=== PATIENT | male | born 1960 | race Caucasian/White ===

== ENCOUNTER 2019-04-17 12:10 | Inpatient (IN) | payer OTHER, SELFPAY ==
[2019-02-10 10:50] VITALS: BMI 23.7
[2019-04-17] VITALS (9 sets, daily range): BP systolic 104–147; BP diastolic 53–100; PULSE 95–124; RESP 14–20; TEMP 37.1–39.3; O2SAT 97–99; BMI 23.7; BMI 23.3
--- NOTE | 2019-04-17 13:16 | VDLE_ITS ---
Reason For Study: pain, redness Procedure LEFT Exam performed portable in ED. GSV is normal. The exam was diagnostic. CFV is compressible, spontaneous, phasic, A preliminary report was called and/or faxed competent, and demonstrates normal to Dr. Reyes. augmentation. FV is compressible, spontaneous, phasic, competent and demonstrates normal augmentation. POP V is compressible, spontaneous, phasic, competent and demonstrates normal augmentation. T/P Trunk is compressible. PTV is compressible. LT PerV is compressible. Interpretation Summary Deep veins of the left lower extremity are patent and compressible segmentally. There is no evidence of left lower extremity deep vein thrombosis. Valvular competence appears intact within the proximal deep venous system on the left . The left greater saphenous vein appears patent and compressible segmentally. Ordering Physician: Tony Reyes Performed By: Aleksandr Wilson RVT
--- NOTE | 2019-04-17 13:16 | EKG12_ITS ---
Test Reason : GEN ILLNESS Blood Pressure : / mmHG Vent. Rate : 117 BPM Atrial Rate : 117 BPM P-R Int : 122 ms QRS Dur : 076 ms QT Int : 296 ms P-R-T Axes : 074 006 068 degrees QTc Int : 412 ms Sinus tachycardia Borderline ECG Confirmed by SMITH MARTÍNEZ ([id number]), tape editor MELIA WATERS ([id number]) on 04/18/2019 2:33:25 PM Referred By: Bhavana Harmon Confirmed By:SMITH MARTÍNEZ
--- NOTE | 2019-04-17 13:16 | CT_ITS ---
STUDY: CT BRAIN WITHOUT CONTRAST REASON FOR EXAM: Male, 58 years old. Headaches. History of subdural hematoma. RADIATION DOSAGE (If Supplied By Facility): CTDIvol = ( 44.99 ) mGy, DLP = ( 849.54 ) mGycm TECHNIQUE: Transaxial CT imaging of the brain was performed without administration of intravenous contrast material. Individualized dose optimization techniques were used for this CT. COMPARISON: Comparison is made with prior study dated March 30, 2015. FINDINGS: Normal soft tissue structures. Normal calvarium. Normal size ventricles and extra-axial spaces for the patient's age. Normal white matter tracts of the cerebral hemispheres. Normal basal ganglia and thalami. Normal brainstem. Normal cerebellum. There is no intracranial hemorrhage. There are no findings of an acute ischemic infarction. Mucosal thickening of the right frontal sinus. CT/Brain/Head without Contrast IMPRESSION: The previously seen left subdural hematoma has resolved. No acute abnormality is seen. Electronically Signed: Woo Thompson, at 14:20 EDT , Service support ,
--- NOTE | 2019-04-17 13:16 | RAD_ITS ---
STUDY: X-RAY CHEST REASON FOR EXAM: Male, 58 years old. Sepsis. TECHNIQUE: Single AP portable view of the chest. COMPARISON: None. FINDINGS: EKG electrodes are seen. Hyperinflation. There is no demonstrated pleural abnormality. Normal size heart. Normal mediastinum and violetta. Normal visualized pulmonary arteries. Normal visualized aortic arch and descending thoracic aorta. There are degenerative changes of the visualized thoracic spine. Normal visualized ribs, clavicles, and shoulders. There is no demonstrated abnormality of the visualized soft tissue structures of the upper abdomen. RAD/Chest 1 View (Portable) IMPRESSION: Hyperinflation. Electronically Signed: Woo Thompson, at 13:40 EDT , Service support ,
[2019-04-17] MEDS: Acetaminophen 500 MG Tablet 1000 MG PO (13:29)
[2019-04-17] MEDS: 0.9% Normal Saline 1,000 ML 1000 ML IV ×2 (13:29)
[2019-04-17 13:38] LABS: Absolute Lymphocyte Count 0.99 X10^3/uL (0.83-4.51); Absolute Neutrophil Count 22.9 X10^3/uL (2.0-7.7); Basophil# 0.07 X10^3/uL; Basophil% 0.3 % (0-1); Eosinophils% 0.4 % (0-5); Hematocrit 45.4 % (40-54); Hemoglobin 15.3 g/dL (13.0-16.5); Lymphocyte # 0.99 X10^3/ul (4.0); Lymphocyte % 3.9 % (19-41); Mean Corp Hgb Conc 33.7 g/dL (32-36); Mean Corpuscular Hgb 32.1 pg (27.0-32.0); Mean Corpuscular Volume 95.4 fL (80-94); Mean Platelet Vol. 10.9 fl (6.2-12.0); Monocyte# 1.24 X10^3/uL; Monocyte% 4.9 % (0-10); NRBC Flagged by Analyzer 0 % (0-5); Neutrophil # 22.89 X10^3/uL (2.7-7.7); Neutrophil % 89.6 % (47-70); POSITIVE DIFFERENTIAL YES; Platelet Count 198 K/mm3 (150-450); RBC Distribution Width CV 13.2 % (11.6-14.6); RBC Distribution Width SD 47.2 fl (35.1-43.9); Red Blood Count 4.76 M/mm3 (4.6-6.2); White Blood Count 25.5 K/mm3 (4.4-11.0)
[2019-04-17 13:42] LABS: Partial Thromboplast Time 30.2 Seconds (24.1-36.2); Prothrombin Time (Protime)PT. 13.4 SECONDS (11.7-14.9)
[2019-04-17 13:47] LABS: Differential Indicated SCAN CRITERIA MET
[2019-04-17 13:50] LABS: Bacteria 0 SEEN /hpf (None Seen); Mucous, Urine 0 SEEN /hpf (<or=2+); Squamous Epithelial Cells - UA 0 SEEN /hpf (0-5); White Blood Cells 0 SEEN /hpf (0-5)
[2019-04-17 13:55] LABS: ALB/GLOB Ratio 0.9 RATIO (0.9-2.4); AST(SGOT) 16 U/L (15-37); Alanine Aminotransfer ALT/SGPT 26 U/L (16-61); Albumin, Serum 3.8 g/dL (3.2-5.0); Alkaline Phosphatase 68 U/L (45-117); Anion Gap 6 (5-15); BUN 16 mg/dL (7-18); BUN/Creat Ratio 13.1 RATIO (10-20); CPK Total, Creatine Kinase 75 U/L (39-308); Chloride 104 mmol/L (98-107); Creatinine, Serum 1.22 mg/dL (0.70-1.30); EST Glomerular Filtration Rate 65 mL/min (>60); Est Glom Filt Rate - Afr Amer 79 mL/min (>60); Estimated Creatinine Clearance 83.01 ml/min; Globulin 4.3 g/dL (2.2-4.2); Glucose 109 mg/dL (74-106); Potassium 3.6 mmol/L (3.5-5.1); Protein, Total 8.1 g/dL (6.4-8.2); Sodium Level 135 mmol/L (136-145)
[2019-04-17 13:55] LABS: Color, Urine Yellow (Yellow); Glucose, Dipstick Normal (Normal); Ketone-Dipstick Negative (Negative); Leukocyte Esterase-Dipstick Negative /ul (Negative); Nitrite-Dipstick Negative (Negative); Occult Blood-Urine 150 /ul (Negative); Protein-Dipstick Negative (Negative); Urine Bilirubin Dipstick Negative (Negative); Urine Clarity Clear (Clear); Urine Urobilinogen Normal (Normal)
[2019-04-17 14:01] LABS: Red Blood Cells-Urine 0-5 SEEN /hpf (0-5)
[2019-04-17 14:04] LABS: Differential Comment SCANNED
[2019-04-17 14:15] LABS: Platelet Estimate ADEQUATE (ADEQ); Red Cell Morphology NORM C+C NORMAL (NORM C&C)
[2019-04-17 14:49] LABS: Lactic Acid 1.7 mmol/L (0.4-2.0)
--- NOTE | 2019-04-17 14:54 | HP.PCM_ITS ---
History of Present Illness Date of Admission: 04/17/19 Chief Complaint: fever, general malaise The patient is a 58 year old M with a past medical history of subdural hematoma. He was admitted to the ED on 04/17/2019 with a complaint of left lower extremity numbness tingling and pain as well as headache, shoulder and back pain as well as neck pain. Patient thinks he may have had a spider bite to his left leg yesterday. He states that it was in his pant leg and he killed the spider but he is not sure exactly where it may have bitten him. He admitted to associated fever but denied any chills, palpitations or dizziness, chest pain, diarrhea vomiting. Review of symptoms otherwise negative. In the ED, vitals were significant for temperature of 102.7 and heart rate in the 130s. CBC was remarkable for white cell count of 25.5. CMP was normal. Chest x-ray showed no acute changes and left lower extremity duplex ultrasound was negative for DVT. CT of the head and was also negative. Actiq acid was 1.7. He has been admitted to be managed for sepsis due to left lower extremity cellulitis. [] Past Medical History Past Medical History (Chronic Problems): Chronic Problems (Last Reviewed 08/12/18 @ 08:21 by Amparo Kaplan) Back pain (Chronic) Tobacco abuse (Chronic) Medical History: Medical History (Last Reviewed 08/12/18 @ 08:21 by Amparo Kaplan) History of transient ischemic attack (TIA) Z86.73 Neck/Back Pain Allergies No Known Allergies Allergy (Verified 08/12/18 08:19) Home Medications: Ambulatory Orders Medication Instructions Recorded NK 04/17/19 Surgical History: no surgical history Psychiatric History: No pertinent psych hx - 1 pack per day for the past 18 years Smoking Status: Heavy Smoker (>10/day) Tobacco Use: Cigarettes Alcohol: None Drugs: None - *Family History Maternal History Items: Cancer Paternal History Items: Cancer Review of Systems Constitutional: Reports: Chills, Fever, Malaise. Denies: Anorexia, Weakness, Fatigue Eyes: Denies: Blurred vision HEENT: Denies: Head Aches, Sinus Congestion, Sinus Drainage Cardiovascular: Denies: Chest Pain, Palpitations Respiratory: Denies: Cough, Shortness of breath at rest, Sputum production Gastrointestinal: Denies: Abdominal Pain, Nausea, Vomiting Genitourinary: Denies: Dysuria Musculoskeletal: Reports: Back Pain, Leg Pain, Muscle pain, Neck Pain, Shoulder Pain. Denies: Arm Pain, Foot Pain, Hand Pain, Joint Pain, Joint stiffness, Joint swelling, Joint Tenderness Skin: Reports: Skin Changes - redness. Denies: Rash, Wounds Neurological: Denies: Numbness, Tingling, Focal weakness Psychiatric: Denies: Anxiety, Depression, Homicidal Ideations, Suicidal Ideations Hematologic/ Lymphatic: Denies: Easy Bruising, Easy Bleeding VTE Information - Inpt Only VTE Present on Admission: No VTE Pharm Prophylaxis ordered?: Yes - Physical Exam General: Alert, Oriented x3, Cooperative, No apparent distress HEENT: Atraumatic, PERRLA, EOMI, Normocephalic Oral: Moist Mucosa Neck: Supple, No JVD, Negative Carotid Bruits Lungs: Clear to auscultation, Normal air movement, No rhonchi, No wheeze, No rales Cardiovascular: Regular Rhythm, Normal S1, Normal S2, No murmurs, Tachycardic Abdomen: Bowel Sounds Present, Soft, Non Tender, Non-Distended, No Hepato- splenomegaly Extremities: No clubbing, No cyanosis, No edema, Capillary Refill Less than 3 Seconds Skin: - - redness and lymphangitic streaking from dorsum of left foot, radiating up to left inner thigh Musculoskeletal: Tenderness - mild tenderness on palpation of LLE and thigh Lymphatic: No Cervical, Supraclavicular, or Inguinal Adenopathy Neurological: Cranial nerves II-XII grossly intact, Neuro grossly intact, Motor Exam 5/5 strength throughout Psych/Mental Status: Normal Affect, Appropriate, Alert and oriented to time, place, person, mood and affect Vital Signs Temp Pulse Resp BP Pulse Ox 102.7 F H 118 H 16 147/100 H 98 04/17/19 13:30 04/17/19 13:30 04/17/19 13:30 04/17/19 13:30 04/17/19 13:30 Oxygen Delivery Method Room Air Weight: 195 lb Body Mass Index (BMI) 23.7 Laboratory Tests Past 24 Hrs 04/17/19 04/17/19 04/17/19 12:40 12:40 12:40 WBC 25.5 H RBC 4.76 Hgb 15.3 Hct 45.4 MCV 95.4 H MCH 32.1 H MCHC 33.7 RDW Std Deviation 47.2 H RDW Coeff of Moses 13.2 Plt Count 198 MPV 10.9 Immature Gran % (Auto) 0.900 Neut % (Auto) 89.6 H Lymph % (Auto) 3.9 L [place] % (Auto) 4.9 Eos % (Auto) 0.4 Baso % (Auto) 0.3 Absolute Neuts (auto) 22.9 H Absolute Lymphs (auto) 0.99 Nucleated RBC % 0 Differential Comment SCANNED Platelet Estimate ADEQUATE RBC Morphology NORM C+C PT 13.4 INR 1.0 APTT 30.2 Sodium 135 L Potassium 3.6 Chloride 104 Carbon Dioxide 25.0 Anion Gap 6 BUN 16 Creatinine 1.22 Estim Creat Clear Calc 83.01 Est GFR (MDRD) Af Amer 79 Est GFR (MDRD) Non-Af 65 BUN/Creatinine Ratio 13.1 Glucose 109 H Lactic Acid Calcium 9.0 Total Bilirubin 0.60 AST 16 ALT 26 Alkaline Phosphatase 68 Total Creatine Kinase 75 Troponin I < 0.015 Total Protein 8.1 Albumin 3.8 Globulin 4.3 H Albumin/Globulin Ratio 0.9 Urine Color Urine Clarity Urine pH Ur Specific [place] Urine Protein Urine Glucose (UA) Urine Ketones Urine Occult Blood Urine Nitrite Urine Bilirubin Urine Urobilinogen Ur Leukocyte Esterase Urine RBC Urine WBC Ur Squamous Epith Cells Urine Bacteria Urine Mucus 04/17/19 04/17/19 13:40 14:10 WBC RBC Hgb Hct MCV MCH MCHC RDW Std Deviation RDW Coeff of Moses Plt Count MPV Immature Gran % (Auto) Neut % (Auto) Lymph % (Auto) [place] % (Auto) Eos % (Auto) Baso % (Auto) Absolute Neuts (auto) Absolute Lymphs (auto) Nucleated RBC % Differential Comment Platelet Estimate RBC Morphology PT INR APTT Sodium Potassium Chloride Carbon Dioxide Anion Gap BUN Creatinine Estim Creat Clear Calc Est GFR (MDRD) Af Amer Est GFR (MDRD) Non-Af BUN/Creatinine Ratio Glucose Lactic Acid 1.7 Calcium Total Bilirubin AST ALT Alkaline Phosphatase Total Creatine Kinase Troponin I Total Protein Albumin Globulin Albumin/Globulin Ratio Urine Color Yellow Urine Clarity Clear Urine pH 8.0 Ur Specific [place] 1.010 Urine Protein Negative Urine Glucose (UA) Normal Urine Ketones Negative Urine Occult Blood 150 H Urine Nitrite Negative Urine Bilirubin Negative Urine Urobilinogen Normal Ur Leukocyte Esterase Negative Urine RBC 0-5 SEEN Urine WBC 0 SEEN Ur Squamous Epith Cells 0 SEEN Urine Bacteria 0 SEEN Urine Mucus 0 SEEN Diagnostic Data Brain CT 04/17/19 13:16 IMPRESSION: The previously seen left subdural hematoma has resolved. No acute abnormality is seen. Electronically Signed: Woo Laulamar, at 14:20 EDT , Service support , Chest X-Ray 04/17/19 13:16 IMPRESSION: Hyperinflation. Electronically Signed: Woo Donna, at 13:40 EDT , Service support , Assessment/Plan All Active Problems (Last Reviewed 08/12/18 @ 08:21 by Amparo Kaplan) Encounter for examination required by Department of Transportation (DOT) (Acute) 58 y/o admitted with a complaint of redness and pain of LLE, and fever and chills. 1. Sepsis due to LLE cellulitis * admit to PCU with telemetry * lactic acid was only 1.7 * SIRS criteria is 3/4 (fever, tachycardia and elevated wbc of 25.5) * started on IV cefazolin; will continue * hydrate with IVF per sepsis protocol * Duplex of LE was negative for DVT * blood cultures taken in ED * keep LLE elevated * 2. LLE cellulitis: as under 1. 3. History of subdural hematoma: * resolved. * CT brain done on admission was negative DVT prophylaxis: lovenox * Code Visit Inpatient E&M: 84484 Init Hosp L3
--- NOTE | 2019-04-17 14:56 | ED.DCSUM_ITS ---
- ER Visit Summary Date of Service: 04/17/19 Chief Complaint: Pain History of Present Illness: The patient is a 58 M with multiple symptoms that started this morning. He had left lower extremity numbness and tingling as well as headache, neck pain, bilateral shoulder pain, back pain. He also had nausea. He thinks he had a spider bite to his left thigh yesterday. He never saw a spider. He reported a sudden pain in the area. He never had this before. He does have a history of a subdural hemorrhage and was admitted for this in the past, but never found an etiology for it he has a remote history of meningitis. Physical Examination: Temperature 102.7 and heart rate in the 130s. Respiratory rate normal. Blood pressure normal. 98% on room air. Patient alert and oriented. He is shivering. HEENT exam unremarkable. Neck is nontender with good range of motion. No meningeal signs. Heart tachycardic but regular. Lungs clear. Abdomen soft and nontender. Patient has erythema, warmth, and swelling to his left dorsal foot as well as erythema to his left medial thigh. There are no obvious skin breaks. He is neurovascularly intact. Cranial nerves grossly intact. Normal strength and sensation. Test Results: EKG showed sinus rhythm at a rate of 117. Nonspecific ST and T wave changes. White count 25.5. Sodium 135, glucose 109. Hepatic panel and coags unremarkable. Urinalysis unremarkable. Troponin unremarkable. Cultures pending. Chest x-ray showed chronic changes. Left lower extremity showed no evidence of DVT on ultrasound. CT brain showed no acute process. Lactate pending. Emergency Department Course and Treatment: Patient meets sepsis criteria. He does have an obvious cellulitis and it looks like lymphangitic streaking up his left leg. He was started on fluid resuscitation and Tylenol. White count was elevated. He had no other signs of sepsis. He continues to have a headache and was treated with Toradol. I do not believe he has meningitis or encephalitis based on his symptoms and exam findings. I believe his symptoms are from the cellulitis. Patient was treated with cefazolin. He received Toradol for pain. I spoke with the hospitalist who will admit for further care. He is improved after fluids, but lactate is pending. Treatment Plan: As above Disposition: Admission Impression: 1. Sepsis 2. Left leg cellulitis 3. Myalgias This note was generated with Regino dictation software. It may contain incorrect words, spelling, and punctuation that were not noted in review of the chart pr ior to signing ED Disposition - Plan for ED Patient: Referrals: Maureen Lerma, AIRFIELD ENGINEER OFFICER-C [Primary Care Provider] -
--- NOTE | 2019-04-17 15:04 | NURSING ---
[address], [facility]
[2019-04-17] MEDS: Ketorolac 15 MG/ML Vial IV (15:36)
--- NOTE | 2019-04-17 15:39 | ED.RN ---
patient sent upstairs with antbx, pharmacy did not send until prior to going up
[2019-04-17] MEDS: 0.9% Normal Saline 1,000 ML 150 ML IV (16:02)
[2019-04-17] MEDS: Cefazolin 1 GM/50 ML BAG IV ×2 (16:03→21:55)
[2019-04-17] MEDS: Acetaminophen 325 MG Tablet 650 MG PO (19:36)
[2019-04-17] MEDS: Ondansetron 4 MG/2 ML Vial IV (23:48)
[2019-04-18] VITALS (12 sets, daily range): BP systolic 105–136; BP diastolic 49–77; PULSE 85–122; RESP 18–29; TEMP 36.1–38.4; O2SAT 96–100
[2019-04-18] MEDS: 0.9% Normal Saline 1,000 ML 150 ML IV (00:44)
[2019-04-18] MEDS: Acetaminophen 325 MG Tablet 650 MG PO ×3 (02:12→19:42)
--- NOTE | 2019-04-18 03:37 | PCM.PN.BLA ---
Progress Note Nurse reports that marking on cellulitic site has gone beyond the original marnie. Patient still have tachycardia and tachypnea. Nurse report chills. Patient required Tylenol to maintain appropriate temperature. Patient is on Ancef for cellulitis. Will escalate regimen by adding clindamycin.
[2019-04-18] MEDS: Cefazolin 1 GM/50 ML BAG IV (05:22)
[2019-04-18 05:54] LABS: Absolute Lymphocyte Count 0.98 X10^3/uL (0.83-4.51); Absolute Neutrophil Count 14.4 X10^3/uL (2.0-7.7); Basophil# 0.07 X10^3/uL; Basophil% 0.4 % (0-1); Eosinophil# 0.06 X10^3/uL; Eosinophils% 0.4 % (0-5); Hematocrit 40.1 % (40-54); Hemoglobin 13.1 g/dL (13.0-16.5); Lymphocyte # 0.98 X10^3/ul (4.0); Lymphocyte % 5.9 % (19-41); Mean Corp Hgb Conc 32.7 g/dL (32-36); Mean Corpuscular Hgb 31.1 pg (27.0-32.0); Mean Corpuscular Volume 95.2 fL (80-94); Mean Platelet Vol. 10.8 fl (6.2-12.0); Monocyte# 0.87 X10^3/uL; Monocyte% 5.3 % (0-10); NRBC Flagged by Analyzer 0 % (0-5); Neutrophil # 14.41 X10^3/uL (2.7-7.7); Neutrophil % 87.3 % (47-70); Platelet Count 167 K/mm3 (150-450); RBC Distribution Width CV 13.8 % (11.6-14.6); RBC Distribution Width SD 48.3 fl (35.1-43.9); Red Blood Count 4.21 M/mm3 (4.6-6.2); White Blood Count 16.5 K/mm3 (4.4-11.0)
[2019-04-18 06:23] LABS: Anion Gap 6 (5-15); BUN 14 mg/dL (7-18); Chloride 111 mmol/L (98-107); Creatinine, Serum 1.17 mg/dL (0.70-1.30); EST Glomerular Filtration Rate 68 mL/min (>60); Est Glom Filt Rate - Afr Amer 83 mL/min (>60); Estimated Creatinine Clearance 86.55 ml/min; Glucose 116 mg/dL (74-106); Potassium 3.4 mmol/L (3.5-5.1); Sodium Level 138 mmol/L (136-145)
[2019-04-18] MEDS: Rizatriptan Benzoate 10 MG Tablet PO (06:58)
[2019-04-18] MEDS: Enoxaparin 40 MG/0.4 ML Syringe SC (10:40)
--- NOTE | 2019-04-18 12:58 | CASEMGMT ---
RN CM VAULT TELLER CM to room to meet with patient for initial transition planning/care coordination assessment. RN RICH introduced self and role at [facility]. Pt voices understanding and consents to assessment at this time. Pt resting in bed in no distress at this time. @ bedside. Pt is A/O at this time and answers all questions appropriately. Care providers, pharmacy, and demographics verified/updated at this time. PCP: Maria Guadalupe Specialists: none Preferred Pharmacy: [facility] Insurance: [facility] Prescription Benefit: Yes Living Will/HPOA: Pt does not currently have LW/HCPOA and declines info at this time. Pt made aware that he can contact [facility] as an out-pt and make appt in the future if he decides he would like to talk with someone about this or would like to utilize [facility] social work for advanced directive completion. Given Railway Patrol Officer Rac card with information and contact number. Pt expresses understanding. LNOK: Living Arrangements: Lives w/ in ranch-style home. Independent. and pt share home mgmt tasks. Transportation: Pt states drives self and states no transportation concerns at this time. will drive pt home @ dc. DME: Denies using any DME and denies needs. HHC/SNF: No history of either and no needs identified. Pt wishes to return home and states has no concerns with going home at time of discharge. Pt states does not drink ETOH. States does smoke and has been given Smoking Cessation Rac Card. States is planning on talking to his PCP about quitting. CM to follow for any discharge planning/needs. Pt voices no further concerns/needs at this time. Advised pt to ask for CM if any further questions/concerns/needs arise. Voices understanding. PLAN: Home w/spousal support and discharge plans in place. Kamlesh TORRES RN, CM
[2019-04-18] MEDS: 0.9% NaCl Peripheral Flush Adult/Peds IV (14:22)
--- NOTE | 2019-04-18 15:25 | PCM.PN.HOSP ---
Subjective: Feels little bit better today, states that his leg is little sore and swollen Vitals/I&O's: Vital Signs Temp Pulse Resp BP Pulse Ox 101.1 F H 111 H 18 133/50 H 100 04/18/19 10:33 04/18/19 10:33 04/18/19 10:33 04/18/19 10:33 04/18/19 10:33 Oxygen Delivery Method Room Air Weight: 192 lb 0.362 oz Body Mass Index (BMI) 23.3 Intake and Output for Last 24 Hours 04/16/19 04/17/19 04/18/19 23:59 23:59 23:59 Intake Total 1465 / 1465 1666 / 1666 Output Total 800 / 800 Balance 665 / 665 1666 / 1666 General: Alert, Oriented x3, Cooperative, No apparent distress HEENT: Atraumatic, PERRLA, EOMI, Normocephalic Oral: Moist Mucosa Neck: Supple, No JVD Lungs: Clear to auscultation, Normal air movement, No rhonchi, No wheeze, No rales Cardiovascular: Regular rate, Regular Rhythm, Normal S1, Normal S2, No murmurs Abdomen: Soft, Non Tender, Non-Distended, No Hepato-splenomegaly Extremities: Capillary Refill Less than 3 Seconds, Edema - 1+ edema left foot Skin: - - Erythema extending from his left foot up into his medial groin. Some segments of lymphatic streaking Neurological: Neuro grossly intact, Sensory exam intact to light touch and pain Psych/Mental Status: Normal Affect, Appropriate Microbiology Past 72 Hours 04/17/19 13:40 Urine, Clean Catch Urine Culture - Preliminary Culture exhibits no growth. Laboratory Results 04/18/19 05:10: WBC 16.5 H, RBC 4.21 L, Hgb 13.1, Hct 40.1, MCV 95.2 H, MCH 31.1, MCHC 32.7, RDW Std Deviation 48.3 H, RDW Coeff of Moses 13.8, Plt Count 167, MPV 10.8, Immature Gran % (Auto) 0.700, Neut % (Auto) 87.3 H, Lymph % (Auto) 5.9 L, [place] % (Auto) 5.3, Eos % (Auto) 0.4, Baso % (Auto) 0.4, Absolute Neuts (auto) 14.4 H, Absolute Lymphs (auto) 0.98, Nucleated RBC % 0 04/18/19 05:10: Sodium 138, Potassium 3.4 L, Chloride 111 H, Carbon Dioxide 21.0, Anion Gap 6, BUN 14, Creatinine 1.17, Estim Creat Clear Calc 86.55, Est GFR (MDRD) Af Amer 83, Est GFR (MDRD) Non-Af 68, BUN/Creatinine Ratio 12.0, Glucose 116 H, Calcium 8.0 L Current Medications Acetaminophen (Tylenol) 650 mg PO Q6H PRN PRN PRN Reason: Mild Pain (1-3)/Temp > 100.7 F Last Admin: 04/18/19 10:40 Dose: 650 mg Documented by: Dextrose (D50w Syringe) 0 gm IV X1 PRN; Protocol PRN Reason: Hypoglycemia Enoxaparin Sodium (Lovenox) 40 mg SC DAILY@1000 ARMANDO Last Admin: 04/18/19 10:40 Dose: 40 mg Documented by: Glucagon () 1 mg IM .X1 PRN PRN Reason: Hypoglycemia Sodium Chloride () 250 mls @ 15 mls/hr IV .[id number] PRN PRN Reason: SALINE FLUSH Clindamycin Phosphate 600 mg/ (Dextrose) 54 mls @ 100 mls/hr IV Q8 [facility] Last Admin: 04/18/19 14:21 Dose: 100 mls/hr Documented by: Cefazolin Sodium 2 gm/ Sodium (Chloride) 110 mls @ 150 mls/hr IV Q8 [facility] Nicotine (Nicoderm Cq (Pbkc)) 21 mg TRANSDERM. DAILY [facility] Last Admin: 04/18/19 10:40 Dose: 21 mg Documented by: Ondansetron HCl (Zofran) 4 mg IV Q8H PRN PRN PRN Reason: NAUSEA/VOMITING Last Admin: 04/17/19 23:48 Dose: 4 mg Documented by: Rizatriptan Benzoate (Maxalt) 10 mg PO .[X1 PRN] PRN PRN Reason: MIGRAINE SYMPTOMS Last Admin: 04/18/19 06:58 Dose: 10 mg Documented by: Sodium Chloride () 10 - 40 ml IV UD PRN PRN Reason: SALINE FLUSH Last Admin: 04/18/19 14:22 Dose: 10 ml Documented by: Medical Necessity - Tobacco Use Smoking Status: Heavy Smoker (>10/day) Tobacco Use: Cigarettes Assessment/Plan All Active Problems (Last Reviewed 08/12/18 @ 08:21 by Amparo Kaplan) Encounter for examination required by Department of Transportation (DOT) (Acute) 1. Sepsis secondary to left lower extremity cellulitis probably from streptococcal organism -Lactic acid on admission was one 1.7 -Continue with IV fluids -Ultrasound of his left lower extremity did not show DVT -Cultures negative and blood cultures are still pending -He was started on IV Ancef 1 g and this was increased to 2 g after he continued to have fevers this afternoon. -He also had clindamycin added because of increased erythema since admission earlier this morning by the security engineer -We will continue to monitor, leukocytosis has improved from 25 to 16 -He is concerned that this could be from a spider bite, he is not showing any areas of necrosis to indicate a spider bite, there is no area of fluctuance to think that this is a staph infection DVT: Lovenox Code Visit Inpatient E&M: 51643 Subs Hosp L2
[2019-04-18] MEDS: Cefazolin 2 GM in 0.9% Normal Saline 100 ML IV ×2 (15:26→22:25)
[2019-04-19] VITALS (8 sets, daily range): BP systolic 103–110; BP diastolic 58–67; PULSE 88–101; RESP 16–18; TEMP 36.9–37.1; O2SAT 97–99
[2019-04-19] MEDS: Acetaminophen 325 MG Tablet 650 MG PO ×3 (04:25→18:19)
[2019-04-19 05:56] LABS: Absolute Lymphocyte Count 1.25 X10^3/uL (0.83-4.51); Absolute Neutrophil Count 12.6 X10^3/uL (2.0-7.7); Basophil# 0.04 X10^3/uL; Basophil% 0.3 % (0-1); Eosinophil# 0.04 X10^3/uL; Eosinophils% 0.3 % (0-5); Hematocrit 41.5 % (40-54); Hemoglobin 13.7 g/dL (13.0-16.5); Lymphocyte # 1.25 X10^3/ul (4.0); Lymphocyte % 8.4 % (19-41); Mean Corpuscular Hgb 31.4 pg (27.0-32.0); Mean Corpuscular Volume 95.2 fL (80-94); Mean Platelet Vol. 10.6 fl (6.2-12.0); Monocyte# 0.94 X10^3/uL; Monocyte% 6.3 % (0-10); NRBC Flagged by Analyzer 0 % (0-5); Neutrophil % 84.2 % (47-70); Platelet Count 145 K/mm3 (150-450); RBC Distribution Width SD 49.5 fl (35.1-43.9); Red Blood Count 4.36 M/mm3 (4.6-6.2); White Blood Count 14.9 K/mm3 (4.4-11.0)
[2019-04-19 06:25] LABS: Anion Gap 6 (5-15); BUN 10 mg/dL (7-18); BUN/Creat Ratio 9.6 RATIO (10-20); Calcium,Total 8.4 mg/dL (8.5-10.1); Chloride 108 mmol/L (98-107); Creatinine, Serum 1.04 mg/dL (0.70-1.30); EST Glomerular Filtration Rate 78 mL/min (>60); Est Glom Filt Rate - Afr Amer 95 mL/min (>60); Estimated Creatinine Clearance 97.37 ml/min; Glucose 124 mg/dL (74-106); Potassium 3.5 mmol/L (3.5-5.1); Sodium Level 139 mmol/L (136-145)
[2019-04-19] MEDS: Cefazolin 2 GM in 0.9% Normal Saline 100 ML IV ×3 (06:48→23:10)
--- NOTE | 2019-04-19 09:04 | PCM.PN.HOSP ---
Subjective: Feeling much better today, headache has resolved and pain has decreased in his left leg as has the redness. Vitals/I&O's: Vital Signs Temp Pulse Resp BP Pulse Ox 98.8 F 94 18 110/67 97 04/19/19 04:30 04/19/19 07:15 04/19/19 04:30 04/19/19 04:30 04/19/19 04:30 Oxygen Delivery Method Room Air Weight: 192 lb 0.362 oz Body Mass Index (BMI) 23.3 Intake and Output for Last 24 Hours 04/17/19 04/18/19 04/19/19 23:59 23:59 23:59 Intake Total 1465 / 1465 2581 / 2581 240 / 240 Output Total 800 / 800 Balance 665 / 665 2581 / 2581 240 / 240 General: Alert, Oriented x3, Cooperative, No apparent distress HEENT: Atraumatic, PERRLA, EOMI, Normocephalic Oral: Moist Mucosa Neck: Supple, No JVD Lungs: Clear to auscultation, Normal air movement, No rhonchi, No wheeze, No rales Cardiovascular: Regular rate, Regular Rhythm, Normal S1, Normal S2, No murmurs Abdomen: Soft, Non Tender, Non-Distended, No Hepato-splenomegaly Extremities: Capillary Refill Less than 3 Seconds, Edema - 1+ edema left foot Skin: - - Erythema extending from his left foot up into his medial groin. Some segments of lymphatic streaking, overall improved Neurological: Neuro grossly intact, Sensory exam intact to light touch and pain Psych/Mental Status: Normal Affect, Appropriate Microbiology Past 72 Hours 04/17/19 13:40 Urine, Clean Catch Urine Culture - Preliminary Culture exhibits no growth. Laboratory Results 04/19/19 05:25: WBC 14.9 H, RBC 4.36 L, Hgb 13.7, Hct 41.5, MCV 95.2 H, MCH 31.4, MCHC 33.0, RDW Std Deviation 49.5 H, RDW Coeff of Moses 14.0, Plt Count 145 L, MPV 10.6, Immature Gran % (Auto) 0.500, Neut % (Auto) 84.2 H, Lymph % (Auto) 8.4 L, [place] % (Auto) 6.3, Eos % (Auto) 0.3, Baso % (Auto) 0.3, Absolute Neuts (auto) 12.6 H, Absolute Lymphs (auto) 1.25, Nucleated RBC % 0 04/19/19 05:25: Sodium 139, Potassium 3.5, Chloride 108 H, Carbon Dioxide 25.0, Anion Gap 6, BUN 10, Creatinine 1.04, Estim Creat Clear Calc 97.37, Est GFR (MDRD) Af Amer 95, Est GFR (MDRD) Non-Af 78, BUN/Creatinine Ratio 9.6 L, Glucose 124 H, Calcium 8.4 L Current Medications Acetaminophen (Tylenol) 650 mg PO Q6H PRN PRN PRN Reason: Mild Pain (1-3)/Temp > 100.7 F Last Admin: 04/19/19 04:25 Dose: 650 mg Documented by: Dextrose (D50w Syringe) 0 gm IV X1 PRN; Protocol PRN Reason: Hypoglycemia Enoxaparin Sodium (Lovenox) 40 mg SC DAILY@1000 ARMANDO Last Admin: 04/18/19 10:40 Dose: 40 mg Documented by: Glucagon () 1 mg IM .X1 PRN PRN Reason: Hypoglycemia Sodium Chloride () 250 mls @ 15 mls/hr IV .[id number] PRN PRN Reason: SALINE FLUSH Clindamycin Phosphate 600 mg/ (Dextrose) 54 mls @ 100 mls/hr IV Q8 [facility] Last Admin: 04/19/19 06:06 Dose: 100 mls/hr Documented by: Cefazolin Sodium 2 gm/ Sodium (Chloride) 110 mls @ 150 mls/hr IV Q8 [facility] Last Admin: 04/19/19 06:48 Dose: 150 mls/hr Documented by: Nicotine (Nicoderm Cq (Pbkc)) 21 mg TRANSDERM. DAILY [facility] Last Admin: 04/18/19 10:40 Dose: 21 mg Documented by: Ondansetron HCl (Zofran) 4 mg IV Q8H PRN PRN PRN Reason: NAUSEA/VOMITING Last Admin: 04/17/19 23:48 Dose: 4 mg Documented by: Rizatriptan Benzoate (Maxalt) 10 mg PO .[X1 PRN] PRN PRN Reason: MIGRAINE SYMPTOMS Last Admin: 04/18/19 06:58 Dose: 10 mg Documented by: Sodium Chloride () 10 - 40 ml IV UD PRN PRN Reason: SALINE FLUSH Last Admin: 04/18/19 14:22 Dose: 10 ml Documented by: Medical Necessity - Tobacco Use Smoking Status: Heavy Smoker (>10/day) Tobacco Use: Cigarettes Assessment/Plan All Active Problems (Last Reviewed 08/12/18 @ 08:21 by Amparo Kaplan) Encounter for examination required by Department of Transportation (DOT) (Acute) 1. Sepsis secondary to left lower extremity cellulitis probably from streptococcal organism -Lactic acid on admission was one 1.7 -Continue with IV fluids -Ultrasound of his left lower extremity did not show DVT -Cultures negative and blood cultures are still pending -With improvement in his erythema, continue with Ancef 2 g 3 times daily and clindamycin, if he continues to improve like this tomorrow we will plan for discharge on p.o. Keflex and clindamycin -We will continue to monitor, leukocytosis has improved from 25 to 14.9 DVT: Lovenox Code Visit Inpatient E&M: 78199 Subs Hosp L2
[2019-04-19] MEDS: Enoxaparin 40 MG/0.4 ML Syringe SC (09:56)
[2019-04-20 03:06] VITALS: PULSE 89
[2019-04-20 03:43] VITALS: BP 109/62; PULSE 93; RESP 16; TEMP 37.1; O2SAT 98
[2019-04-20] MEDS: Acetaminophen 325 MG Tablet 650 MG PO (04:30)
[2019-04-20 05:51] LABS: Absolute Lymphocyte Count 1.25 X10^3/uL (0.83-4.51); Absolute Neutrophil Count 7.9 X10^3/uL (2.0-7.7); Basophil# 0.04 X10^3/uL; Basophil% 0.4 % (0-1); Eosinophil# 0.23 X10^3/uL; Eosinophils% 2.2 % (0-5); Lymphocyte # 1.25 X10^3/ul (4.0); Lymphocyte % 12.1 % (19-41); Mean Corp Hgb Conc 33.3 g/dL (32-36); Mean Corpuscular Hgb 31.7 pg (27.0-32.0); Mean Corpuscular Volume 95.1 fL (80-94); Mean Platelet Vol. 10.9 fl (6.2-12.0); Monocyte# 0.92 X10^3/uL; Monocyte% 8.9 % (0-10); NRBC Flagged by Analyzer 0 % (0-5); Neutrophil # 7.87 X10^3/uL (2.7-7.7); Neutrophil % 75.9 % (47-70); Platelet Count 164 K/mm3 (150-450); RBC Distribution Width CV 13.9 % (11.6-14.6); RBC Distribution Width SD 48.5 fl (35.1-43.9); White Blood Count 10.4 K/mm3 (4.4-11.0)
[2019-04-20] MEDS: Cefazolin 2 GM in 0.9% Normal Saline 100 ML IV (07:13)
[2019-04-20 08:30] VITALS: BP 104/63; PULSE 88; RESP 18; TEMP 36.9; O2SAT 98
--- NOTE | 2019-04-20 08:39 | DCINST_ITS ---
You will use the following diet at home:: Regular Your food should be the consistency of: Regular Your liquids should be the consistency of: Regular/Thin Discharge Activity: Return to Normal Activity Call your doctor if your incision/area has: Increased Pain/ Swelling, Increased Redness Call your doctor if you observe: Fever of 101 or Higher, Shortness of breath, Dizziness, Fainting spells, Chest pain, Increased palpitations (irregular heartbeat) Allergies/Adverse Reactions: Allergies No Known Allergies Allergy (Verified 08/12/18 08:19) Medications to take at Discharge Cephalexin [Keflex] 500 mg PO Q6 #28 cap 04/20/19 Clindamycin [Cleocin] 300 mg PO 4X/DAY #56 cap 04/20/19 The following prescriptions were given: Clindamycin [Cleocin] 300 mg PO 4X/DAY #56 cap Transmission Status: Pending to [facility] Cephalexin [Keflex] 500 mg PO Q6 #28 cap Transmission Status: Pending to [facility] Primary Care Physician: Maureen Lerma NP-C [Primary Care Provider] - Please follow up with your Primary Care Physician in: 3-5 days Test Results: Test results from this visit will be discussed in further detail at your follow- up appointment, if applicable.
--- NOTE | 2019-04-20 08:41 | PCM.DC.SUM ---
Discharge Date and Diagnosis Date of Admission: 04/17/19 Date of Discharge: 04/20/19 - Secondary Discharge Diagnosis Chronic Problems (Last Reviewed 08/12/18 @ 08:21 by Amparo Kaplan) Back pain (Chronic) Tobacco abuse (Chronic) Hospital Course and Treatment Imaging Results: CT Brain: IMPRESSION: The previously seen left subdural hematoma has resolved. No acute abnormality is seen. CXR: IMPRESSION: Hyperinflation. Venous Doppler: Interpretation Summary Deep veins of the left lower extremity are patent and compressible segmentally. There is no evidence of left lower extremity deep vein thrombosis. Valvular competence appears intact within the proximal deep venous system on the left . The left greater saphenous vein appears patent and compressible segmentally. Consults: None Operations: None Procedures: None Summary of Care Provided: Per HPI: The patient is a 58 year old M with a past medical history of subdural hematoma. He was admitted to the ED on 04/17/2019 with a complaint of left lower extremity numbness tingling and pain as well as headache, shoulder and back pain as well as neck pain. Patient thinks he may have had a spider bite to his left leg yesterday. He states that it was in his pant leg and he killed the spider but he is not sure exactly where it may have bitten him. He admitted to associated fever but denied any chills, palpitations or dizziness, chest pain, diarrhea vomiting. Review of symptoms otherwise negative. In the ED, vitals were significant for temperature of 102.7 and heart rate in the 130s. CBC was remarkable for white cell count of 25.5. CMP was normal. Chest x-ray showed no acute changes and left lower extremity duplex ultrasound was negative for DVT. CT of the head and was also negative. Actiq acid was 1.7. He has been admitted to be managed for sepsis due to left lower extremity cellulitis. Hospital Course: 1. Sepsis secondary to left lower extremity cellulitis probably from streptococcal [id number] male with a history of subdural hematoma presented with 12-hour onset of left lower extremity cellulitis. On admission he was septic which has resolved. He did have a lactic acid which was 1.7 on admission and was continued on IV fluids. He did have a venous Doppler of his left lower extremity which was negative for DVT. He was admitted initially on Ancef, however the night of his admission he spiked a fever and there is progression of the redness with streaking up the medial aspect of his leg, so the hand miter operator also added clindamycin. He has since improved significantly in his redness though he does still have left lower extremity swelling in his foot. His white count has resolved from 25-10 and therefore he will be discharged home on 7 more days of Keflex 500 mg p.o. 4 times daily and clindamycin 300 mg p.o. 4 times daily as well. He is to follow-up with his PCP in 3 to 5 days for evaluation. I also stressed to him that he needs to finish his antibiotics completely even if he starts to feel better over the weekend. This was discussed with both him and the and both understand and are in agreement. Objective: General: Alert, Oriented x3, Cooperative, No apparent distress HEENT: Atraumatic, PERRLA, EOMI, Normocephalic Oral: Moist Mucosa Neck: Supple, No JVD Lungs: Clear to auscultation, Normal air movement, No rhonchi, No wheeze, No rales Cardiovascular: Regular rate, Regular Rhythm, Normal S1, Normal S2, No murmurs Abdomen: Soft, Non Tender, Non-Distended, No Hepato-splenomegaly Extremities: Capillary Refill Less than 3 Seconds, Edema - 1+ edema left foot Skin: - - Erythema extending from his left foot up into his medial groin. Some segments of lymphatic streaking, overall improved Neurological: Neuro grossly intact, Sensory exam intact to light touch and pain Psych/Mental Status: Normal Affect, Appropriate - Physical Exam Vital Signs Temp Pulse Resp BP Pulse Ox 98.5 F 88 18 104/63 98 04/20/19 08:30 04/20/19 08:30 04/20/19 08:30 04/20/19 08:30 04/20/19 08:30 Oxygen Delivery Method Room Air Weight: 192 lb 0.362 oz Body Mass Index (BMI) 23.3 Intake and Output for Last 24 Hours 04/18/19 04/19/19 04/20/19 23:59 23:59 23:59 Intake Total 2580 350 / 350 Balance 2580 350 / 350 Microbiology Past 72 Hours 04/17/19 13:40 Urine Culture - Final Urine, Clean Catch Culture exhibits no growth. 04/17/19 14:15 Blood Culture - Preliminary Blood Culture (Wb) - Anticubital Right No growth in 48 hours. 04/17/19 14:10 Blood Culture - Preliminary Blood Culture (Wb) - Left Hand No growth in 48 hours. Laboratory Tests Past 24 Hrs 04/20/19 05:17 WBC 10.4 RBC 4.10 L Hgb 13.0 Hct 39.0 L MCV 95.1 H MCH 31.7 MCHC 33.3 RDW Std Deviation 48.5 H RDW Coeff of Moses 13.9 Plt Count 164 MPV 10.9 Immature Gran % (Auto) 0.500 Neut % (Auto) 75.9 H Lymph % (Auto) 12.1 L [place] % (Auto) 8.9 Eos % (Auto) 2.2 Baso % (Auto) 0.4 Absolute Neuts (auto) 7.9 H Absolute Lymphs (auto) 1.25 Nucleated RBC % 0 Discharge Activity: Return to Normal Activity Call your doctor if your incision/area has: Increased Pain/ Swelling, Increased Redness Call your doctor if you observe: Fever of 101 or Higher, Shortness of breath, Dizziness, Fainting spells, Chest pain, Increased palpitations (irregular heartbeat) Home Medications: Medications to take at Discharge Cephalexin [Keflex] 500 mg PO Q6 #28 cap 04/20/19 Clindamycin [Cleocin] 300 mg PO 4X/DAY #56 cap 04/20/19 Following Prescrptions Were Given to Patient: Clindamycin [Cleocin] 300 mg PO 4X/DAY #56 cap Transmission Status: Pending to [facility] Cephalexin [Keflex] 500 mg PO Q6 #28 cap Transmission Status: Pending to [facility] Primary Care Physician: Maureen Lerma NP-C [Primary Care Provider] - Please follow up with your Primary Care Physician in: 3-5 days Disposition: Home Minutes spent on discharge:: 35 Patient Condition:: Stable Medical Necessity - Tobacco Use Smoking Status: Heavy Smoker (>10/day) Tobacco Use: Cigarettes Meaningful Use Info Meaningful Use Diagnoses (Choose all that apply): None applicable Code Visit Inpatient E&M: 40848 Disch Hosp
[2019-04-20 10:00] VITALS: PULSE 90
[2019-04-20 10:11] VITALS: BP 138/66; PULSE 90; RESP 18; TEMP 37.2; O2SAT 99
== END 2019-04-20 10:19 | disposition home or self-care (01) | DRG 872 ==
LOC: ED 14:00 → PCU 15:09
PROVIDERS: Admitting Provider Student in an Organized Health Care Education/Training Program; Emergency Provider Emergency Medicine; Family Provider Nurse Practitioner; PCP Nurse Practitioner; Referring Provider Student in an Organized Health Care Education/Training Program; Visit Provider Family Medicine
DX: A40.9 Streptococcal sepsis, unspecified (principal); L03.116 Cellulitis of left lower limb
CPT/HCPCS: 36415; 70450; 71045; 80048; 80053; 81001; 82550; 83605; 84484; 85025; 85610; 85730; 87040; 87086; 93005; 93971; 99285; 99406; J7030; J7040; A4216; J2405

== ENCOUNTER 2019-04-20 13:24 | Emergency (ER) | payer OTHER, SELFPAY ==
[2019-04-17 15:53] VITALS: BMI 23.3
[2019-04-20 13:25] VITALS: BP 126/83; PULSE 106; RESP 18; TEMP 36.6; O2SAT 99; BMI 23.4
[2019-04-20 13:54] VITALS: PULSE 106; TEMP 37.1
--- NOTE | 2019-04-20 14:57 | ED.DCSUM_ITS ---
- ER Visit Summary Date of Service: 04/20/19 Chief Complaint: [Allergic reaction] History of Present Illness: The patient is a 58 M [presents to the emergency department with Beth for an allergic reaction related to an antibiotic that he is taking. Patient states that he was just discharged from the hospital 2 hours ago. Patient was admitted for the last 3 days for a cellulitis of his left lower extremity. Patient was on Ancef and clindamycin IV and was discharged on Keflex and clindamycin p.o. Patient states that after going home he ate a bowl of oatmeal and took his medications in about an hour afterwards developed a itchy red raised rash. He denies any difficulty breathing. He denies lip or tongue swelling. Patient presented for repeat evaluation. Patient has otherwise no known drug allergies. He denies any fevers. is concerned because she thought may be his cellulitis on his left foot seems somewhat worse.] Physical Examination: [HEENT-PERRLA, EOMI. Cranial nerves II through XII grossly intact. TMs clear. Mucous membranes moist. No adenopathy. Cardiovascular-regular rate and rhythm without murmur or ectopy Lungs-clear to auscultation, chest wall stable without crepitus or subcu emphysema Abdomen-normoactive bowel sounds, soft, nontender, no rebound or rigidity, no peritoneal signs. Skin exam-patient had a faint urticarial rash involving the trunk and buttocks. The rash is mostly resolved on his extremities and there is no rash on the face. Extremities-intact ?4, normal range of motion, normal pulses, atraumatic. Left leg-patient has cellulitis of the left foot as well as the lower extremity with some lymphangitic streaking that is faint to the medial thigh. Areas of the leg were outlined with permanent marker and the rash seems to be receding and improving.] Test Results: [None indicated] Emergency Department Course and Treatment: [Case was discussed with who took care of the patient has an inpatient and discharged him today. Given the fact that it is unclear which medication he is reacting to whether it be the Keflex or the clindamycin plan was to discontinue both at this time and switch him over to doxycycline. The wanted the internal medicine doctor to look at the foot again because she thought it was worse and he will attempt to come down and see the patient in the department.] Treatment Plan: [We will switch patient to doxycycline. Given the fact that his fever is now resolved and his cellulitis is clinically improved it was felt that patient can be discharged home with the doxycycline. They are advised to return if increased redness, fever, or condition should worsen anyway.] Disposition: [Discharged home stable condition] Impression: [Urticaria secondary antibiotic clindamycin or Keflex. Improving cellulitis left lower extremity] This note was generated with [employer] dictation software. It may contain incorrect words, spelling, and punctuation that were not noted in review of the chart prior to signing ED Disposition - Plan for ED Patient: Referrals: Maureen Lerma, CREDIT ASSOCIATE-C [Primary Care Provider] -
[2019-04-20] MEDS: Doxycycline 100 MG CAPSULE PO (15:01)
--- NOTE | 2019-04-20 15:02 | ED.DEP ---
ED Disposition - Plan for ED Patient: Instructions: ALLERGIC REACTION, Drug, Cellulitis Prescriptions: Doxycycline 100 mg PO BID #20 cap Prescription Printed Referrals: Maureen Lerma, UMANG-C [Primary Care Provider] - 3-5 Days
--- NOTE | 2019-04-20 15:30 | RAD_ITS ---
STUDY: X-RAY - LEFT FOOT CLINICAL: Male, 58 years old. Swelling and erythema of the foot. TECHNIQUE: 3 view(s) of the foot. COMPARISON: None. FINDINGS: There is a plantar calcaneal spur. Normal visualized subtalar, talonavicular, calcaneocuboid, tarsal and tarsometatarsal articulations. Normal metatarsi. Normal metatarsophalangeal joint of the great toe. Normal tibial and fibular sesamoid bones. Normal interphalangeal joint of the great toe. Normal phalanges of the great toe. Normal second through fifth metatarsophalangeal joints. Normal interphalangeal joints and phalanges of the lesser toes. Diffuse soft tissue swelling. Diffuse soft tissue swelling. RAD/Foot min 3 Views IMPRESSION: Normal x-ray examination of the foot. Electronically Signed: Woo Thompson, at 15:49 EDT , Service support ,
[2019-04-20 15:47] VITALS: PULSE 102; RESP 17; TEMP 37.2
[2019-04-20 16:06] VITALS: BP 103/73; PULSE 98; RESP 16; O2SAT 100
== END 2019-04-20 16:07 | disposition home or self-care (01) ==
LOC: ED 14:26
PROVIDERS: Emergency Provider Emergency Medicine; Family Provider Nurse Practitioner; PCP Nurse Practitioner
DX: L50.0 Allergic urticaria (principal); T50.905A Adverse effect of unspecified drugs, medicaments and biological substances, initial encounter; Y92.9 Unspecified place or not applicable; L03.116 Cellulitis of left lower limb; Z86.73 Personal history of transient ischemic attack (TIA), and cerebral infarction without residual deficits; Z72.0 Tobacco use
CPT/HCPCS: 73630; 99283; A4216

== ENCOUNTER 2019-04-22 08:10 | Emergency (ER) | payer OTHER, SELFPAY ==
[2019-04-22 08:11] VITALS: BP 106/84; PULSE 109; RESP 18; TEMP 36.1; O2SAT 98; BMI 23.3
--- NOTE | 2019-04-22 08:31 | ED.DCSUM_ITS ---
History of Present Illness Chief Complaint: Cellulitis Informant: Patient, Family Onset: Days Current Severity: Moderate Maximum Severity: Moderate Narrative: Patient presents with concerns about continued cellulitis to the left lower extremity. Patient was admitted on April 17 with cellulitis of the left foot and ankle area as well as left medial thigh. At that time he had a temperature over 102 and a white count of 25. He was treated in the hospital with Ancef and clindamycin IV. Symptoms improved and he was discharged on p.o. Keflex and clindamycin. Patient broke out in a rash after taking oral medication. He presented back to the emergency room and was switched to doxycycline. Patient presents with continued redness to the left foot and ankle area. He has been elevating it above the level of his heart. He states he only feels pain when he first gets up in the morning after having his foot elevated all night. He has not had any recurrent fever. Past Medical History - Allergies and Home Meds Allergies/Adverse Reactions: Allergies No Known Allergies Allergy (Verified 04/22/19 08:11) Primary Care Physician: Maureen Lerma NP-C [Primary Care Provider] - Prior records reviewed: Yes Past Medical History: - - Reviewed Surgical History: no surgical history Lives: Spouse/ Significant Other Smoking Status: Current every day smoker - Family History Maternal Family History: Reports: Cancer Paternal Family History: Reports: Cancer Review of Systems General: Denies: Chills, Fever Eyes: Denies: Visual changes - bilaterally ENT: Denies: Bilateral ear pain Cardiovascular: Denies: Chest pain Respiratory: Denies: Dyspnea Gastrointestinal: Denies: Abdominal pain Musculoskeletal: Reports: Myalgias Skin: Reports: Rash - Sialitis Neurological: Denies: Headache Hematologic: Denies: Easy bruising Allergy: Denies: Uticaria Physical Exam Vital Signs/Narrative: Vital Signs Temp Pulse Resp BP Pulse Ox 04/22/19 08:11 97.0 F L 109 H 18 106/84 H 98 Inital Vital Signs reviewed: Yes General: Well nourished, Well developed Head: Normocephalic ENT: Moist mucous membranes Neck: Supple Cardiovascular: Regular rate, Regular rhythm Respiratory: No distress, CTA bilaterally Abdomen: Soft, Nontender Extremities: - - Mild erythema to the left medial thigh. Left distal tib-fib and foot have a erythematous to purplish tinge with edema. There is mild skin warmth. Area of erythema does extend beyond the marked pen lines, but states it is been this way for a couple days. He does have edema noted to his third through the fifth toes with slight erythema to the toes as well. No open wounds are noted. Neurological: Alert, Oriented x3 Psychological: Normal affect Diagnostic/Tx/Re-eval Laboratory Results 04/22/19 04/22/19 08:47 08:47 WBC 10.9 RBC 4.18 L Hgb 13.5 Hct 40.2 MCV 96.2 H MCH 32.3 H MCHC 33.6 RDW Std Deviation 49.1 H RDW Coeff of Moses 13.7 Plt Count 210 MPV 10.6 Immature Gran % (Auto) 0.700 Neut % (Auto) 75.0 H Lymph % (Auto) 16.8 L [place] % (Auto) 5.1 Eos % (Auto) 1.9 Baso % (Auto) 0.5 Absolute Neuts (auto) 8.2 H Absolute Lymphs (auto) 1.84 Nucleated RBC % 0 Sodium 140 Potassium 3.9 Chloride 109 H Carbon Dioxide 26.0 Anion Gap 5 BUN 18 Creatinine 0.90 Estim Creat Clear Calc 112.52 Est GFR (MDRD) Af Amer 112 Est GFR (MDRD) Non-Af 93 BUN/Creatinine Ratio 20.0 Glucose 101 Calcium 8.8 - Medical Decision Making Patient's foot was elevated with an ice pack. They reported it was looking much better, however worsened again and the patient got up to the restroom. At this time the skin changes appear more consistent with capillary injury and leakage as opposed to worsening cellulitis. The area is only minimally warm. He has not had further fever. Patient's leg will be wrapped with an Oni wrap. I will speak with his PCP as he does have an upcoming appointment to notify them of his current state. They will continue the doxycycline. ED Disposition - Plan for ED Patient: Disposition: Home or Assisted Living Diagnosis: Cellulitis Instructions: Cellulitis Referrals: Maureen Lerma, UMANG-C [Primary Care Provider] - Keep Rickey appointment
[2019-04-22 09:04] LABS: Absolute Lymphocyte Count 1.84 X10^3/uL (0.83-4.51); Absolute Neutrophil Count 8.2 X10^3/uL (2.0-7.7); Basophil# 0.06 X10^3/uL; Basophil% 0.5 % (0-1); Eosinophil# 0.21 X10^3/uL; Eosinophils% 1.9 % (0-5); Hematocrit 40.2 % (40-54); Hemoglobin 13.5 g/dL (13.0-16.5); Lymphocyte # 1.84 X10^3/ul (4.0); Lymphocyte % 16.8 % (19-41); Mean Corp Hgb Conc 33.6 g/dL (32-36); Mean Corpuscular Hgb 32.3 pg (27.0-32.0); Mean Corpuscular Volume 96.2 fL (80-94); Mean Platelet Vol. 10.6 fl (6.2-12.0); Monocyte# 0.56 X10^3/uL; Monocyte% 5.1 % (0-10); NRBC Flagged by Analyzer 0 % (0-5); Neutrophil # 8.19 X10^3/uL (2.7-7.7); Platelet Count 210 K/mm3 (150-450); RBC Distribution Width CV 13.7 % (11.6-14.6); RBC Distribution Width SD 49.1 fl (35.1-43.9); Red Blood Count 4.18 M/mm3 (4.6-6.2); White Blood Count 10.9 K/mm3 (4.4-11.0)
[2019-04-22 09:20] LABS: Anion Gap 5 (5-15); BUN 18 mg/dL (7-18); Calcium,Total 8.8 mg/dL (8.5-10.1); Chloride 109 mmol/L (98-107); EST Glomerular Filtration Rate 93 mL/min (>60); Est Glom Filt Rate - Afr Amer 112 mL/min (>60); Estimated Creatinine Clearance 112.52 ml/min; Glucose 101 mg/dL (74-106); Potassium 3.9 mmol/L (3.5-5.1); Sodium Level 140 mmol/L (136-145)
[2019-04-22 09:38] VITALS: BP 105/69; PULSE 86; RESP 14; O2SAT 100
[2019-04-22 10:42] VITALS: BP 110/61; PULSE 79; RESP 14; O2SAT 100
== END 2019-04-22 10:43 | disposition home or self-care (01) ==
PROVIDERS: Emergency Provider Emergency Medicine; Family Provider Nurse Practitioner; PCP Nurse Practitioner
DX: L03.116 Cellulitis of left lower limb (principal); F17.200 Nicotine dependence, unspecified, uncomplicated
CPT/HCPCS: 80048; 85025; 99284; A4216

== ENCOUNTER → 2019-05-03 | Outpatient (CLI) | payer OTHER, SELFPAY ==
[2019-04-22 08:11] VITALS: BMI 23.3
--- NOTE | 2019-05-03 09:43 | ART_ITS ---
Reason For Study: vascular abnormality Procedure A bilateral lower extremity continuous wave Doppler with analog waveform analysis,segmental pressures,and ankle brachial indexes without exercise. Left Segmental Pressures Left brachial= 116mmHg. Left posterior tibial artery = 134mmHg. Left dorsalis pedis artery = 148mmHg. The left dorsalis pedis waveforms are triphasic. The left posterior tibial artery waveforms are triphasic. Right Segmental Pressures Right brachial= 125mmHg. Right posterior tibial artery = 143mmHg. Right dorsalis pedis artery = 144mmHg. The right dorsalis pedis waveforms are triphasic. The right posterior tibial artery waveforms are triphasic. Indices The right ankle brachial index by the dorsalis pedis is 1.15. The right ankle brachial index by the posterior tibial artery is 1.14. The left ankle brachial index by the dorsalis pedis is 1.18. The left ankle brachial index by the posterior tibial artery is 1.07. Interpretation Summary Triphasic Doppler waveforms are noted at ankle level bilaterally. Pulse-volume recording waveforms appear satisfactory bilaterally, but for digital level on the left, which is diminished. Resting ankle-brachial indices are normal bilaterally. There is no evidence of significant arterial occlusive disease in the lower extremities bilaterally. Ordering Physician: Maureen Lerma Performed By: LEAH HAY T
== END | disposition home or self-care (01) ==
LOC: CVS 09:41
PROVIDERS: Family Provider Nurse Practitioner; PCP Nurse Practitioner; Referring Provider Nurse Practitioner; Visit Provider Nurse Practitioner
DX: I99.9 Unspecified disorder of circulatory system (principal)
CPT/HCPCS: 93923

== ENCOUNTER → 2019-12-29 | Outpatient (CLI) | payer OTHER, SELFPAY ==
[2019-12-29 07:49] LABS: Absolute Lymphocyte Count 2.61 X10^3/uL (0.83-4.51); Absolute Neutrophil Count 5.7 X10^3/uL (2.0-7.7); Basophil# 0.07 X10^3/uL; Basophil% 0.8 % (0-1); Eosinophil# 0.29 X10^3/uL; Eosinophils% 3.1 % (0-5); Hematocrit 48.7 % (40-54); Hemoglobin 15.6 g/dL (13.0-16.5); Lymphocyte # 2.61 X10^3/ul (4.0); Lymphocyte % 28.3 % (19-41); Mean Corpuscular Hgb 31.2 pg (27.0-32.0); Mean Corpuscular Volume 97.4 fL (80-94); Mean Platelet Vol. 10.4 fl (6.2-12.0); Monocyte# 0.58 X10^3/uL; Monocyte% 6.3 % (0-10); NRBC Flagged by Analyzer 0 % (0-5); Neutrophil # 5.65 X10^3/uL (2.7-7.7); Neutrophil % 61.2 % (47-70); Platelet Count 227 K/mm3 (150-450); RBC Distribution Width CV 13.3 % (11.6-14.6); RBC Distribution Width SD 47.7 fl (35.1-43.9); White Blood Count 9.2 K/mm3 (4.4-11.0)
[2019-12-29 08:16] LABS: ALB/GLOB Ratio 0.9 RATIO (0.9-2.4); AST(SGOT) 18 U/L (15-37); Alanine Aminotransfer ALT/SGPT 26 U/L (16-61); Albumin, Serum 3.7 g/dL (3.2-5.0); Alkaline Phosphatase 76 U/L (45-117); Anion Gap 4 (5-15); BUN 16 mg/dL (7-18); BUN/Creat Ratio 15.5 RATIO (10-20); Calcium,Total 9.1 mg/dL (8.5-10.1); Chloride 104 mmol/L (98-107); Creatinine, Serum 1.03 mg/dL (0.70-1.30); EST Glomerular Filtration Rate 79 mL/min (>60); Est Glom Filt Rate - Afr Amer 96 mL/min (>60); Globulin 4.1 g/dL (2.2-4.2); Glucose 101 mg/dL (74-106); Potassium 4.3 mmol/L (3.5-5.1); Protein, Total 7.8 g/dL (6.4-8.2); Sodium Level 138 mmol/L (136-145)
== END | disposition home or self-care (01) ==
LOC: LAB 07:30
PROVIDERS: PCP Nurse Practitioner; Referring Provider Nurse Practitioner; Visit Provider Nurse Practitioner
DX: J02.9 Acute pharyngitis, unspecified (principal); M79.89 Other specified soft tissue disorders; I87.8 Other specified disorders of veins
CPT/HCPCS: 36415; 80053; 85025

== ENCOUNTER → 2020-10-04 07:06 | Outpatient (CLI) | payer OTHER, SELFPAY ==
[2020-01-25 09:13] VITALS: BMI 23.3
[2020-10-04 07:57] LABS: Absolute Neutrophil Count 5.6 X10^3/uL (2.0-7.7); Basophil# 0.07 X10^3/uL; Basophil% 0.8 % (0-1); Eosinophil# 0.33 X10^3/uL; Eosinophils% 3.6 % (0-5); Hematocrit 48.3 % (40-54); Hemoglobin 15.6 g/dL (13.0-16.5); Lymphocyte % 28.3 % (19-41); Mean Corp Hgb Conc 32.3 g/dL (32-36); Mean Corpuscular Hgb 31.6 pg (27.0-32.0); Mean Platelet Vol. 10.8 fl (6.2-12.0); Monocyte% 6.5 % (0-10); NRBC Flagged by Analyzer 0 % (0-5); Neutrophil # 5.55 X10^3/uL (2.7-7.7); Neutrophil % 60.5 % (47-70); Platelet Count 240 K/mm3 (150-450); RBC Distribution Width CV 13.2 % (11.6-14.6); RBC Distribution Width SD 47.3 fl (35.1-43.9); Red Blood Count 4.93 M/mm3 (4.6-6.2); White Blood Count 9.2 K/mm3 (4.4-11.0)
[2020-10-04 08:11] LABS: ALB/GLOB Ratio 0.9 RATIO (0.9-2.4); AST(SGOT) 16 U/L (15-37); Alanine Aminotransfer ALT/SGPT 22 U/L (16-61); Albumin, Serum 3.5 g/dL (3.2-5.0); Alkaline Phosphatase 74 U/L (45-117); Anion Gap 1 (5-15); BUN 21 mg/dL (7-18); BUN/Creat Ratio 17.4 RATIO (10-20); Chloride 110 mmol/L (98-107); Cholesterol 237 mg/dL (200); Creatinine, Serum 1.21 mg/dL (0.70-1.30); EST Glomerular Filtration Rate 65 mL/min (>60); Est Glom Filt Rate - Afr Amer 79 mL/min (>60); Globulin 4.1 g/dL (2.2-4.2); Glucose 93 mg/dL (74-106); High Density Lipoprotein 45 mg/dL; Potassium 4.8 mmol/L (3.5-5.1); Protein, Total 7.6 g/dL (6.4-8.2); Sodium Level 140 mmol/L (136-145); Thyroid Stim Hormone (TSH) 1.26 uIU/mL (0.358-3.74); Triglycerides 122 mg/dL; Very Low Density Lipoprotein 24 mg/dL (5-40)
== END ==
PROVIDERS: PCP Nurse Practitioner; Referring Provider Nurse Practitioner; Visit Provider Nurse Practitioner
DX: E78.00 Pure hypercholesterolemia, unspecified (principal); Z12.5 Encounter for screening for malignant neoplasm of prostate
CPT/HCPCS: 36415; 80053; 80061; 84153; 84443; 85025; G0103

== ENCOUNTER 2022-04-17 08:47 | Inpatient (IN) | payer OTHER, SELFPAY ==
[2022-04-17] VITALS (12 sets, daily range): BP systolic 96–123; BP diastolic 51–83; PULSE 91–138; RESP 16–22; TEMP 36.7–38.2; O2SAT 96–99; BMI 24.0; BMI 24.7
--- NOTE | 2022-04-17 09:09 | RAD_ITS ---
STUDY: X-RAY CHEST REASON FOR EXAM: Male, 61 years old. fever TECHNIQUE: Single AP portable view of the chest. COMPARISON: 04/17/2019 FINDINGS: Poor inspiration with some bibasilar atelectasis. There is no demonstrated pleural abnormality. Normal size heart. Normal mediastinum and violetta. Normal visualized pulmonary arteries. Normal visualized aortic arch and descending thoracic aorta. Normal visualized thoracic spine. Normal visualized ribs, clavicles, and shoulders. There is no demonstrated abnormality of the visualized soft tissue structures of the upper abdomen. RAD/Chest 1 View (Portable) IMPRESSION: Poor inspiration with some bibasilar atelectasis. Electronically Signed: Jean Velasquez MD at 11:51 EDT ,
--- NOTE | 2022-04-17 09:12 | EDS_ITS ---
HPI <WALDEMAR Cox - Last Filed: 04/17/22 11:42> History of Present Illness Chief Complaint: Fever Narrative Narrative: 61-year-old male woke up at 1 AM this morning with fever, chills, and cold sweats. He had a mild headache and neck and back pain and vomited several times. He is also having some pain in his left thigh and when arriving to the ER they noticed his left lower leg is red. He chronically has mild swelling in the left foot which is unchanged. There is no trauma or recent wound or bite. Fever was 102F at home and he took Tylenol at 8 AM. He denies sore throat, cough or congestion. No chest pain, shortness of breath, abdominal pain or diarrhea. Reports normal bladder and bowel movements. He was feeling in good health yesterday and has had no sick contacts. PFSH <WALDEMAR Cox - Last Filed: 04/17/22 11:42> [facility] Medical History (Updated 04/17/22 @ 11:[address] Luca Irving, DO) History of transient ischemic attack (TIA) Neck/Back Pain Home Medications Lactobacillus acidophilus 10 billion cell capsule 1 cap PO DAILY immune health 04/20/19 [History Last Taken 04/20/19] Allergy/AdvReac Type Severity Reaction Status Date / Time No Known Allergies Allergy Verified 04/17/22 09:05 Social History (Updated 01/25/20 @ 09:14 by WALDEMAR Castillo) Smoking Status: Current every day smoker tobacco type: cigarettes alcohol intake: never ROS <WALDEMAR Cox - Last Filed: 04/17/22 11:42> ROS ED ROS Narrative Constitutional: Positive for fever, chills, malaise. Eyes: Negative for visual change. ENT: Negative for sore throat, ear pain, rhinorrhea. CVS: Negative for palpitations, chest pain, syncope. Respiratory: Negative for shortness of breath, cough, orthopnea. GI: Positive for nausea, vomiting. Negative for abdominal pain, diarrhea, constipation, melena, hematochezia. : Negative for dysuria, hematuria or frequency. Neuro: Negative for headache, motor/sensory dysfunction. Skin: Positive for redness. Negative for abscess, or wound. Musc: Negative for joint pain, swelling, trauma. Heme: Negative for easy bruising, bleeding, lymphadenopathy. EXAM <WALDEMAR Cox - Last Filed: 04/17/22 11:42> Physical Exam Narrative Exam Narrative: CONST: Patient sitting in no acute distress. EYES: Normal inspection. ENT: Normal inspection, dry mucous membranes. NECK: Normal inspection. Full range of motion with no meningismus. RESP: No respiratory distress, CTAB. CVS: Rapid with regular rhythm, no murmur, no gallop. ABD: Soft and nontender, no guarding or rebound, nondistended, no hepatosplenomegaly. Back: Normal inspection. SKIN: Erythema of left anterior ricardo from just below the knee extending down to the dorsum of the foot. No lymphangitic streaking, no wounds or abrasions. EXTREMITIES: Slight swelling of dorsum of left foot which she states is chronic. 2+ radial and DP pulses. NEURO: Oriented x4. PSYCH: Normal affect. Const Vital Signs: 04/17/22 08:47 04/17/22 08:59 04/17/22 10:00 Temperature 99.9 F H 98.7 F Temperature Source Oral Oral Pulse Rate 138 H 115 H Respiratory Rate 18 20 H Respiratory Effort Normal Respiratory Pattern Normal Blood Pressure 96/51 L 106/63 Blood Pressure Mean 66 77 Pulse Ox 97 98 Oxygen Delivery Method Room Air Room Air 04/17/22 10:22 04/17/22 10:00 04/17/22 11:00 Temperature 98.7 F 98.3 F Temperature Source Oral Oral Pulse Rate 115 H Respiratory Rate 22 H Respiratory Effort Respiratory Pattern Blood Pressure 98/70 Blood Pressure Mean 79 Pulse Ox 99 Oxygen Delivery Method Room Air Room Air <Dr. Luca Irving DO - Last Filed: 04/17/22 11:58> Physical Exam Const Vital Signs: 04/17/22 08:47 04/17/22 08:59 04/17/22 10:00 Temperature 99.9 F H 98.7 F Temperature Source Oral Oral Pulse Rate 138 H 115 H Respiratory Rate 18 20 H Respiratory Effort Normal Respiratory Pattern Normal Blood Pressure 96/51 L 106/63 Blood Pressure Mean 66 77 Pulse Ox 97 98 Oxygen Delivery Method Room Air Room Air 04/17/22 10:22 04/17/22 10:00 04/17/22 11:00 Temperature 98.7 F 98.3 F Temperature Source Oral Oral Pulse Rate 115 H Respiratory Rate 22 H Respiratory Effort Respiratory Pattern Blood Pressure 98/70 Blood Pressure Mean 79 Pulse Ox 99 Oxygen Delivery Method Room Air Room Air [facility] <WALDEMAR Cox - Last Filed: 04/17/22 11:42> [facility] Narrative Medical decision making narrative: Patient presents with fever, chills, and myalgias. He appears well and nontoxic. BP 96/51, tachycardic in 130s, temperature of 99.9F. Exam only remarkable for erythema of left lower leg which appears to be cellulitis. Labs show a white count of 228.5 with bands. Creatinine slightly elevated at 1.39. Lactate is 1.6. CXR AND UA ARE NEGATIVE FOR INFECTION. IV fluids were started and blood cultures drawn prior to starting unasyn and vancomycin. Vitals are improving but still remains tachycardic around 115. Plan will be to admit patient for sepsis secondary to left leg cellulitis. 1. Sepsis 2. Left leg cellulitis 3. Left leg pain I have personally performed a face to face assessment of the patient and have reviewed the KATE Note. I performed a substantive portion of the visit including all aspects of the following. My miranda findings include: History is [patient presents to the emergency department with complaint of not feeling well since around 1 AM. Patient states he woke up with chills and sweats. Patient had several episodes of emesis. He had a fever at home up to 102. Patient denies diarrhea. He denies cough for trouble breathing. He denies sick contacts. Patient took a home COVID test that was negative. Patient tells me that about 5 years ago he had sepsis from a spider bite on his left leg. Patient denies dysuria or urgency or frequency. He did urinate twice this morning.] Exam is [HEENT-PERRLA, EOMI. Cranial nerves II through XII grossly intact. TMs clear. Mucous membranes moist. No adenopathy. Cardiovascular-regular and tachycardic without murmur or ectopy Lungs-clear to auscultation, chest wall stable without crepitus or subcu emphysema Abdomen-normoactive bowel sounds, soft, nontender, no rebound or rigidity, no peritoneal signs. Extremities-intact ?4, normal range of motion, normal pulses, atraumatic. Patient does have cellulitic changes involving the left lower extremity from below the knee to the foot. Foot is warm to the touch.] Medical Decison Making [ ] Other additions or changes: [None] Lab Data Attestation: I reviewed the patient's lab results. Labs: Laboratory Results - last 24 hr 04/17/22 04/17/22 04/17/22 09:30 09:30 09:30 WBC 28.5 H RBC 4.52 L Hgb 14.4 Hct 42.9 MCV 94.9 H MCH 31.9 MCHC 33.6 RDW Std Deviation 46.7 H RDW Coeff of Moses 13.3 Plt Count 152 MPV 11.6 Immature Gran % (Auto) 2.800 H Neut % (Auto) 88.7 H Lymph % (Auto) 2.4 L [place] % (Auto) 5.6 Eos % (Auto) 0.3 Baso % (Auto) 0.2 Absolute Neuts (auto) 25.2 H Absolute Lymphs (auto) 0.68 L Nucleated RBC % 0 Differential Comment SCANNED Plt Morphology Comment LARGE PT 13.5 INR 1.1 APTT 25.4 Sodium 140 Potassium 3.3 L Chloride 110 H Carbon Dioxide 26.0 Anion Gap 4 L BUN 24 H Creatinine 1.39 H Estim Creat Clear Calc 70.25 Est GFR (MDRD) Af Amer 67 Est GFR (MDRD) Non-Af 56 L BUN/Creatinine Ratio 17.3 Glucose 112 H Lactic Acid Calcium 9.1 Total Bilirubin 0.80 AST 14 L ALT 18 Alkaline Phosphatase 53 Total Protein 6.9 Albumin 3.3 Globulin 3.6 Albumin/Globulin Ratio 0.9 Urine Color Urine Clarity Urine pH Ur Specific [place] Urine Protein Urine Glucose (UA) Urine Ketones Urine Occult Blood Urine Nitrite Urine Bilirubin Urine Urobilinogen Ur Leukocyte Esterase Urine RBC Urine WBC Ur Squamous Epith Cells Amorphous Sediment Urine Bacteria Urine Mucus 04/17/22 04/17/22 09:30 10:50 WBC RBC Hgb Hct MCV MCH MCHC RDW Std Deviation RDW Coeff of Moses Plt Count MPV Immature Gran % (Auto) Neut % (Auto) Lymph % (Auto) [place] % (Auto) Eos % (Auto) Baso % (Auto) Absolute Neuts (auto) Absolute Lymphs (auto) Nucleated RBC % Differential Comment Plt Morphology Comment PT INR APTT Sodium Potassium Chloride Carbon Dioxide Anion Gap BUN Creatinine Estim Creat Clear Calc Est GFR (MDRD) Af Amer Est GFR (MDRD) Non-Af BUN/Creatinine Ratio Glucose Lactic Acid 1.6 Calcium Total Bilirubin AST ALT Alkaline Phosphatase Total Protein Albumin Globulin Albumin/Globulin Ratio Urine Color Yellow Urine Clarity Clear Urine pH 8.0 Ur Specific [place] 1.010 Urine Protein Negative Urine Glucose (UA) Normal Urine Ketones Negative Urine Occult Blood 250 H Urine Nitrite Negative Urine Bilirubin Negative Urine Urobilinogen Normal Ur Leukocyte Esterase Negative Urine RBC 10-25 SEEN Urine WBC 0 SEEN Ur Squamous Epith Cells 0 SEEN Amorphous Sediment 2+ Urine Bacteria 0 SEEN Urine Mucus 0 SEEN Radiography Diagnostic Testing: Clinical Impression(s) from Imaging Studies Chest X-Ray 04/17/22 09:09 IMPRESSION: Poor inspiration with some bibasilar atelectasis. Electronically Signed: Jean Velasquez MD at 11:51 EDT , <Dr. Luca Irving, DO - Last Filed: 04/17/22 11:58> [facility] MDM Narrative Medical decision making narrative: Patient presents with fever, chills, and myalgias. He appears well and nontoxic. BP 96/51, tachycardic in 130s, temperature of 99.9F. Exam only remarkable for erythema of left lower leg which appears to be cellulitis. Labs show a white count of 228.5 with bands. Creatinine slightly elevated at 1.39. Lactate is 1.6. CXR AND UA ARE NEGATIVE FOR INFECTION. IV fluids were started and blood cultures drawn prior to starting unasyn and vancomycin. Vitals are improving but still remains tachycardic around 115. Plan will be to admit patient for sepsis secondary to left leg cellulitis. 1. Sepsis 2. Left leg cellulitis 3. Left leg pain I have personally performed a face to face assessment of the patient and have reviewed the KATE Note. I performed a substantive portion of the visit including all aspects of the following. My miranda findings include: History is [patient presents to the emergency department with complaint of not feeling well since around 1 AM. Patient states he woke up with chills and sweats. Patient had several episodes of emesis. He had a fever at home up to 102. Patient denies diarrhea. He denies cough for trouble breathing. He denies sick contacts. Patient took a home COVID test that was negative. Patient tells me that about 5 years ago he had sepsis from a spider bite on his left leg. Patient denies dysuria or urgency or frequency. He did urinate twice this morning.] Exam is [HEENT-PERRLA, EOMI. Cranial nerves II through XII grossly intact. TMs clear. Mucous membranes moist. No adenopathy. Cardiovascular-regular and tachycardic without murmur or ectopy Lungs-clear to auscultation, chest wall stable without crepitus or subcu emphysema Abdomen-normoactive bowel sounds, soft, nontender, no rebound or rigidity, no peritoneal signs. Extremities-intact ?4, normal range of motion, normal pulses, atraumatic. Patient does have cellulitic changes involving the left lower extremity from below the knee to the foot. Foot is warm to the touch.] Medical Decison Making [patient noted to have an elevated white count of 28.5. Urine and chest x-ray unremarkable. Given his elevated white count and tachycardia as well as decreased blood pressure was felt patient would require admission. He was given IV fluids and started empirically on Unasyn and vancomycin IV. Case will be discussed with hospitalist evaluate for admission. I suspect the source of his infection is the cellulitis of the left lower extremity.] Other additions or changes: [None] Lab Data Labs: Laboratory Results - last 24 hr 04/17/22 04/17/22 04/17/22 09:30 09:30 09:30 WBC 28.5 H RBC 4.52 L Hgb 14.4 Hct 42.9 MCV 94.9 H MCH 31.9 MCHC 33.6 RDW Std Deviation 46.7 H RDW Coeff of Moses 13.3 Plt Count 152 MPV 11.6 Immature Gran % (Auto) 2.800 H Neut % (Auto) 88.7 H Lymph % (Auto) 2.4 L [place] % (Auto) 5.6 Eos % (Auto) 0.3 Baso % (Auto) 0.2 Absolute Neuts (auto) 25.2 H Absolute Lymphs (auto) 0.68 L Nucleated RBC % 0 Differential Comment SCANNED Plt Morphology Comment LARGE PT 13.5 INR 1.1 APTT 25.4 Sodium 140 Potassium 3.3 L Chloride 110 H Carbon Dioxide 26.0 Anion Gap 4 L BUN 24 H Creatinine 1.39 H Estim Creat Clear Calc 70.25 Est GFR (MDRD) Af Amer 67 Est GFR (MDRD) Non-Af 56 L BUN/Creatinine Ratio 17.3 Glucose 112 H Lactic Acid Calcium 9.1 Total Bilirubin 0.80 AST 14 L ALT 18 Alkaline Phosphatase 53 Total Protein 6.9 Albumin 3.3 Globulin 3.6 Albumin/Globulin Ratio 0.9 Urine Color Urine Clarity Urine pH Ur Specific [place] Urine Protein Urine Glucose (UA) Urine Ketones Urine Occult Blood Urine Nitrite Urine Bilirubin Urine Urobilinogen Ur Leukocyte Esterase Urine RBC Urine WBC Ur Squamous Epith Cells Amorphous Sediment Urine Bacteria Urine Mucus 04/17/22 04/17/22 09:30 10:50 WBC RBC Hgb Hct MCV MCH MCHC RDW Std Deviation RDW Coeff of Moses Plt Count MPV Immature Gran % (Auto) Neut % (Auto) Lymph % (Auto) [place] % (Auto) Eos % (Auto) Baso % (Auto) Absolute Neuts (auto) Absolute Lymphs (auto) Nucleated RBC % Differential Comment Plt Morphology Comment PT INR APTT Sodium Potassium Chloride Carbon Dioxide Anion Gap BUN Creatinine Estim Creat Clear Calc Est GFR (MDRD) Af Amer Est GFR (MDRD) Non-Af BUN/Creatinine Ratio Glucose Lactic Acid 1.6 Calcium Total Bilirubin AST ALT Alkaline Phosphatase Total Protein Albumin Globulin Albumin/Globulin Ratio Urine Color Yellow Urine Clarity Clear Urine pH 8.0 Ur Specific [place] 1.010 Urine Protein Negative Urine Glucose (UA) Normal Urine Ketones Negative Urine Occult Blood 250 H Urine Nitrite Negative Urine Bilirubin Negative Urine Urobilinogen Normal Ur Leukocyte Esterase Negative Urine RBC 10-25 SEEN Urine WBC 0 SEEN Ur Squamous Epith Cells 0 SEEN Amorphous Sediment 2+ Urine Bacteria 0 SEEN Urine Mucus 0 SEEN Radiography Diagnostic Testing: Clinical Impression(s) from Imaging Studies Chest X-Ray 04/17/22 09:09 IMPRESSION: Poor inspiration with some bibasilar atelectasis. Electronically Signed: Jean Velasquez MD at 11:51 EDT , 1 view chest x-ray obtained interpreted by myself as no acute disease process. Radiology but there may be some bibasilar atelectasis otherwise nothing acute. Discharge Plan Triage Chief Complaint: Fever ED Midlevel Provider: Janie Jolly ED Provider: Luca Irving Dx/Rx/DC Orders Clinical Impression: Acute pain of left lower extremity, Cellulitis of left leg, Sepsis Prescriptions: No Action Lactobacillus acidophilus 1 EACH capsule 1 cap PO DAILY Primary Care Provider: Maureen Lerma REAL ESTATE INVESTMENT ANALYST Referrals: Maureen Lerma REAL ESTATE INVESTMENT ANALYST, REAL ESTATE INVESTMENT ANALYST-C [Primary Care Provider] -
[2022-04-17 09:50] LABS: Absolute Lymphocyte Count 0.68 X10^3/uL (0.83-4.51); Absolute Neutrophil Count 25.2 X10^3/uL (2.0-7.7); Basophil# 0.07 X10^3/uL; Basophil% 0.2 % (0-1); Eosinophil# 0.09 X10^3/uL; Eosinophils% 0.3 % (0-5); Hematocrit 42.9 % (40-54); Hemoglobin 14.4 g/dL (13.0-16.5); Lymphocyte # 0.68 X10^3/ul (0.83-4.51); Lymphocyte % 2.4 % (19-41); Mean Corp Hgb Conc 33.6 g/dL (32-36); Mean Corpuscular Hgb 31.9 pg (27.0-32.0); Mean Corpuscular Volume 94.9 fL (80-94); Mean Platelet Vol. 11.6 fl (6.2-12.0); Monocyte% 5.6 % (0-10); NRBC Flagged by Analyzer 0 % (0-5); Neutrophil # 25.22 X10^3/uL (2.7-7.7); Neutrophil % 88.7 % (47-70); POSITIVE COUNT YES; POSITIVE DIFFERENTIAL YES; Platelet Count 152 K/mm3 (150-450); RBC Distribution Width CV 13.3 % (11.6-14.6); RBC Distribution Width SD 46.7 fl (35.1-43.9); Red Blood Count 4.52 M/mm3 (4.6-6.2); White Blood Count 28.5 K/mm3 (4.4-11.0)
[2022-04-17 09:54] LABS: International Normalized Ratio 1.1; Partial Thromboplast Time 25.4 Seconds (24.1-36.2); Prothrombin Time (Protime)PT. 13.5 SECONDS (11.7-14.9)
[2022-04-17 09:56] LABS: Differential Indicated SCAN CRITERIA MET
[2022-04-17 09:58] LABS: ALB/GLOB Ratio 0.9 RATIO (0.9-2.4); AST(SGOT) 14 U/L (15-37); Alanine Aminotransfer ALT/SGPT 18 U/L (16-61); Albumin, Serum 3.3 g/dL (3.2-5.0); Alkaline Phosphatase 53 U/L (45-117); Anion Gap 4 (5-15); BUN 24 mg/dL (7-18); BUN/Creat Ratio 17.3 RATIO (10-20); Calcium,Total 9.1 mg/dL (8.5-10.1); Chloride 110 mmol/L (98-107); Creatinine, Serum 1.39 mg/dL (0.70-1.30); EST Glomerular Filtration Rate 56 mL/min (>60); Est Glom Filt Rate - Afr Amer 67 mL/min (>60); Estimated Creatinine Clearance 70.25 ml/min; Globulin 3.6 g/dL (2.2-4.2); Glucose 112 mg/dL (74-106); Potassium 3.3 mmol/L (3.5-5.1); Protein, Total 6.9 g/dL (6.4-8.2); Sodium Level 140 mmol/L (136-145)
[2022-04-17] MEDS: Ondansetron 4 MG/2 ML Vial IV (10:01)
[2022-04-17] MEDS: 0.9% Normal Saline 1,000 ML 999 ML IV ×2 (10:01→10:46)
[2022-04-17] MEDS: Ibuprofen 200 MG Tablet 400 MG PO (10:01)
[2022-04-17 10:13] LABS: Differential Comment SCANNED; Platelet Morphology LARGE
[2022-04-17 10:15] LABS: Lactic Acid 1.6 mmol/L (0.4-1.9)
[2022-04-17 10:57] LABS: Bacteria 0 SEEN /hpf (None Seen); Mucous, Urine 0 SEEN /hpf (<or=2+); Squamous Epithelial Cells - UA 0 SEEN /hpf (0-5); White Blood Cells 0 SEEN /hpf (0-5)
[2022-04-17 11:07] LABS: Color, Urine Yellow (Yellow); Glucose, Dipstick Normal (Normal); Ketone-Dipstick Negative (Negative); Leukocyte Esterase-Dipstick Negative /ul (Negative); Nitrite-Dipstick Negative (Negative); Occult Blood-Urine 250 /ul (Negative); Protein-Dipstick Negative (Negative); Urine Bilirubin Dipstick Negative (Negative); Urine Clarity Clear (Clear); Urine Urobilinogen Normal (Normal)
[2022-04-17 11:22] LABS: Amorphous Sediment 2+; Red Blood Cells-Urine 10-25 SEEN /hpf (0-5)
--- NOTE | 2022-04-17 12:14 | PCM.HP.STD ---
[facility] - General General Date of Service: 04/17/22 Chief Complaint: Left leg redness HPI Narrative HAWA BAKER, is a 61 M who presents presents with cellulitis of the left lower extremity. Was fine yesterday, then this morning did not feel well, had nausea, vomiting, headache and then developed erythema on his distal left lower extremity. This is similar to presentation about 3 years ago when he had cellulitis. Patient was septic with tachycardia and low blood pressure. Patient did receive IV fluids and his blood pressure subsequently improved. Patient is overall feeling better at this time. Patient denies any injuries or any trauma to his lower extremity. [facility] Medical History History of transient ischemic attack (TIA) Neck/Back Pain Home Medications Lactobacillus acidophilus 10 billion cell capsule 1 cap PO DAILY immune health 04/20/19 [History Last Taken 04/20/19] Allergy/AdvReac Type Severity Reaction Status Date / Time No Known Allergies Allergy Verified 04/17/22 09:05 Social History Smoking Status: Current every day smoker tobacco type: cigarettes alcohol intake: never ROS ROS Narrative All review of systems were negative except as mentioned above in the history of present illness and the other review of systems. Vital Signs Vital Signs Vital Signs: 04/17/22 08:47 04/17/22 08:59 04/17/22 10:00 Temperature 37.7 C H 37.1 C Temperature Source Oral Oral Pulse Rate 138 H 115 H Respiratory Rate 18 20 H Respiratory Effort Normal Respiratory Pattern Normal Blood Pressure 96/51 L 106/63 Blood Pressure Mean 66 77 Pulse Ox 97 98 Oxygen Delivery Method Room Air Room Air 04/17/22 10:22 04/17/22 10:00 04/17/22 11:00 Temperature 37.1 C 36.8 C Temperature Source Oral Oral Pulse Rate 115 H Respiratory Rate 22 H Respiratory Effort Respiratory Pattern Blood Pressure 98/70 Blood Pressure Mean 79 Pulse Ox 99 Oxygen Delivery Method Room Air Room Air Weight Weight: 89.811 kg Body Mass Index (BMI) 24.0 Physical Exam Const alert Constitutional Narrative: Up in bed. No acute distress and afebrile. HEENT normocephalic and head/scalp atraumatic Resp normal respiratory effort, no retractions, no use of accessory muscles and clear to auscultation bilaterally Cardio Cardio Narrative: Tachycardic. Regular. Sinus tachycardia on telemetry. GI normal to inspection, nondistended, normoactive bowel sounds, soft to palpation, non-tender and non-distended Extremity no clubbing, cyanosis or edema Extremity Narrative: Normal cap refill on the left lower extremity Skin Skin Narrative: Erythema extending from the patient's dorsum of his left foot up to upper ricardo. Macular rash. No fluctuance appreciated. No wounds appreciated. Psych affect normal Results Lab / Micro Data Attestation: I reviewed the patient's lab results. Result Diagrams: 04/17/22 09:30 04/17/22 09:30 Labs: Laboratory Results - last 24 hr 04/17/22 09:30: WBC 28.5 H, RBC 4.52 L, Hgb 14.4, Hct 42.9, MCV 94.9 H, MCH 31.9, MCHC 33.6, RDW Std Deviation 46.7 H, RDW Coeff of Moses 13.3, Plt Count 152, MPV 11.6, Immature Gran % (Auto) 2.800 H, Neut % (Auto) 88.7 H, Lymph % (Auto) 2.4 L, [place] % (Auto) 5.6, Eos % (Auto) 0.3, Baso % (Auto) 0.2, Absolute Neuts (auto) 25.2 H, Absolute Lymphs (auto) 0.68 L, Nucleated RBC % 0, Differential Comment SCANNED, Plt Morphology Comment LARGE 04/17/22 09:30: PT 13.5, INR 1.1, APTT 25.4 04/17/22 09:30: Sodium 140, Potassium 3.3 L, Chloride 110 H, Carbon Dioxide 26.0, Anion Gap 4 L, BUN 24 H, Creatinine 1.39 H, Estim Creat Clear Calc 70.25, Est GFR (MDRD) Af Amer 67, Est GFR (MDRD) Non-Af 56 L, BUN/Creatinine Ratio 17.3, Glucose 112 H, Calcium 9.1, Total Bilirubin 0.80, AST 14 L, ALT 18, Alkaline Phosphatase 53, Total Protein 6.9, Albumin 3.3, Globulin 3.6, Albumin/Globulin Ratio 0.9 04/17/22 09:30: Lactic Acid 1.6 08/06/22 10:50: Urine Color Yellow, Urine Clarity Clear, Urine pH 8.0, Ur Specific [place] 1.010, Urine Protein Negative, Urine Glucose (UA) Normal, Urine Ketones Negative, Urine Occult Blood 250 H, Urine Nitrite Negative, Urine Bilirubin Negative, Urine Urobilinogen Normal, Ur Leukocyte Esterase Negative, Urine RBC 10-25 SEEN, Urine WBC 0 SEEN, Ur Squamous Epith Cells 0 SEEN, Amorphous Sediment 2+, Urine Bacteria 0 SEEN, Urine Mucus 0 SEEN Radiology Impression Chest X-Ray 04/17/22 09:09 IMPRESSION: Poor inspiration with some bibasilar atelectasis. Electronically Signed: Jean Velasquez MD at 11:51 EDT , Assessment & Plan Assessment/Plan (1) Sepsis: QUALIFIERS: Sepsis type: sepsis due to unspecified organism Sepsis acute organ dysfunction status: without acute organ dysfunction Qualified Code(s): A41.9 - Sepsis, unspecified organism PLAN: Secondary to cellulitis A qSOFA of 2 with a tachypnea of 22 and a systolic blood pressure of 90. Patient received IV fluids which did improve. We will continue with IV fluids on the floor. Treat the underlying infection Follow-up cultures Patient is did check him for COVID as his initial symptoms of her nausea vomiting and headache. The rapid COVID was negative. (2) Cellulitis of left leg: PLAN: No clear source of etiology, such as a wound or laceration Given the rapid onset I suspect this is more of a MRSA infection Antibiotics with vancomycin and ampicillin/sulbactam. Check MRSA swab PLAN: Plan Nicotine abuse: patient requesting nicotine patch VTE prophylaxis with enoxaparin Case discussed with the patient and significant other at bedside. Explained to them both that there is no clear etiology for his cellulitis. Last time apparently patient had a spider in his trousers that bit him that he actually did see a spider. No obvious spiders at this time and certainly no wounds to suggest a spider bite. I did tell them that most the time then when people think they are bitten by spider there is no spider. Charges/Coding Visit Charges Inpatient E&M: 29343 Init Hosp L3
--- NOTE | 2022-04-17 13:47 | PCM.RX.CS ---
Consult Pharmacy has been consulted to manage selected antiobiotic: Vancomycin Type of Consult: New start Prior Doses of Antibiotics Received/Current Regimen: Medications Vancomycin HCl 1,250 mg/ (Sodium Chloride) 275 mls @ 167 mls/hr IV X1 ONE Stop: 04/17/22 11:43 Last Admin: 04/17/22 12:37 Dose: Infused Labs: Sodium 140 mmol/L (136-145) 04/17/22 09:30 Potassium 3.3 mmol/L (3.5-5.1) L 04/17/22 09:30 Chloride 110 mmol/L (98-107) H 04/17/22 09:30 Carbon Dioxide 26.0 mmol/L (21.0-32.0) 04/17/22 09:30 Anion Gap 4 (5-15) L 04/17/22 09:30 BUN 24 mg/dL (7-18) H 04/17/22 09:30 Creatinine 1.39 mg/dL (0.70-1.30) H 04/17/22 09:30 Est GFR (MDRD) Af Amer 67 mL/min (>60) 04/17/22 09:30 Est GFR (MDRD) Non-Af 56 mL/min (>60) L 04/17/22 09:30 BUN/Creatinine Ratio 17.3 RATIO (10-20) 04/17/22 09:30 Glucose 112 mg/dL (74-106) H 04/17/22 09:30 Microbiology: Microbiology 04/17/22 11:55 Nasal Secretion SARS-CoV-2 Antigen (Rapid) - Final Weight used for dosin kg Estimated Creatinine Clearance: 68 Goal Trough: 15-20 mcg/mL Pharmacy Plan for Drug Dosinmg IV q12h with trough prior to 4th dose per policy. Pharmacy Service will continue to monitor and adjust dosing as required. Follow-Up Labs: Trough Vancomycin - 04/18 @ 2130
[2022-04-17] MEDS: 0.9% Normal Saline 1,000 ML 200 ML IV ×2 (14:05→20:04)
[2022-04-17] MEDS: Acetaminophen 325 MG Tablet 650 MG PO (14:07)
--- NOTE | 2022-04-17 15:15 | CASEMGMT ---
RN RICH Face to Face with patient for initial transition planning/care coordination assessment. RN CM introduced self and role at [facility]. Patient lying in bed, alert and oriented. Patient willing to participate in assessment and is able to answer all questions appropriately. Care providers, pharmacy, and demographics verified. Patient wishes to discharge home, denies need for home health at this time. Patient states he has no further needs or concerns at this time. CM to follow for discharge planning needs that may arise. PCP: Maria Guadalupe Specialists: None Preferred Pharmacy: [facility] Insurance: [facility] Prescription Benefit: yes Living Will/HPOA: none LNOK: Living Arrangements: Patient lives with with a single story home with 3 steps and railing to enter the home. Patient states he is independent at home. Transportation: self, DME/HHC: Patient states he has cane at home. No previous HHC or SNF Disposition Plan: Patient to discharge home with family support and follow-up plans in place. Sully TORRES, RN, CM
[2022-04-17 15:24] LABS: Lactic Acid 1.4 mmol/L (0.4-1.9)
[2022-04-17] MEDS: Ibuprofen 400 MG Tablet PO (17:34)
[2022-04-17] MEDS: MELATONIN 3 MG TABLET PO (21:58)
[2022-04-17] MEDS: Vancomycin IV 1,000 MG/200 ML BAG 200 MG IV (22:01)
[2022-04-18] VITALS (14 sets, daily range): BP systolic 106–138; BP diastolic 50–69; PULSE 84–115; RESP 16–18; TEMP 36.7–38.7; O2SAT 95–100
[2022-04-18] MEDS: Ibuprofen 400 MG Tablet PO ×2 (05:48→12:46)
[2022-04-18 06:15] LABS: Absolute Lymphocyte Count 1.04 X10^3/uL (0.83-4.51); Absolute Neutrophil Count 21.2 X10^3/uL (2.0-7.7); Basophil# 0.06 X10^3/uL; Basophil% 0.3 % (0-1); Eosinophil# 0.01 X10^3/uL; Hematocrit 40.1 % (40-54); Hemoglobin 12.8 g/dL (13.0-16.5); Lymphocyte # 1.04 X10^3/ul (0.83-4.51); Lymphocyte % 4.5 % (19-41); Mean Corp Hgb Conc 31.9 g/dL (32-36); Mean Corpuscular Hgb 31.6 pg (27.0-32.0); Mean Platelet Vol. 11.5 fl (6.2-12.0); Monocyte# 0.67 X10^3/uL; Monocyte% 2.9 % (0-10); NRBC Flagged by Analyzer 0 % (0-5); Neutrophil # 21.17 X10^3/uL (2.7-7.7); Neutrophil % 91.2 % (47-70); POSITIVE DIFFERENTIAL YES; Platelet Count 164 K/mm3 (150-450); RBC Distribution Width CV 14.1 % (11.6-14.6); RBC Distribution Width SD 51.3 fl (35.1-43.9); Red Blood Count 4.05 M/mm3 (4.6-6.2); White Blood Count 23.2 K/mm3 (4.4-11.0)
[2022-04-18 06:29] LABS: Differential Indicated SCAN CRITERIA MET
[2022-04-18 06:47] LABS: Differential Comment SCANNED
[2022-04-18 06:57] LABS: ALB/GLOB Ratio 0.7 RATIO (0.9-2.4); AST(SGOT) 27 U/L (15-37); Alanine Aminotransfer ALT/SGPT 34 U/L (16-61); Albumin, Serum 2.7 g/dL (3.2-5.0); Alkaline Phosphatase 47 U/L (45-117); Anion Gap 3 (5-15); BUN 16 mg/dL (7-18); BUN/Creat Ratio 15.4 RATIO (10-20); Calcium,Total 8.1 mg/dL (8.5-10.1); Chloride 110 mmol/L (98-107); Creatinine, Serum 1.04 mg/dL (0.70-1.30); EST Glomerular Filtration Rate 78 mL/min (>60); Est Glom Filt Rate - Afr Amer 94 mL/min (>60); Estimated Creatinine Clearance 91.41 ml/min; Globulin 3.7 g/dL (2.2-4.2); Glucose 120 mg/dL (74-106); Potassium 3.9 mmol/L (3.5-5.1); Protein, Total 6.4 g/dL (6.4-8.2); Sodium Level 140 mmol/L (136-145)
--- NOTE | 2022-04-18 07:50 | PCM.PN.HOSP ---
Subjective Subjective Feels better though the redness on his leg has extended beyond the lines of demarcation and aloe up in his left groin. Objective Data Objective Data Vital Signs: Vital Signs Temp Pulse Resp BP Pulse Ox O2 Del Method 36.7 C 84 18 113/65 97 Room Air 04/18/22 03:40 04/18/22 03:40 04/18/22 03:40 04/18/22 03:40 04/18/22 03:40 04/18/22 03:41 Oxygen Delivery Method Room Air Weight: 89.9 kg Body Mass Index (BMI) 24.7 Intake & Output: Intake and Output for Last 24 Hours 04/16/22 04/17/22 04/18/22 23:59 23:59 23:59 Intake Total 4815.67 / 4815.67 1077.33 / 1077.33 Balance 4815.67 / 4815.67 1077.33 / 1077.33 Lab / Micro Data Result Diagrams: 04/18/22 05:07 04/18/22 05:07 Labs: Laboratory Results - last 24 hr 04/17/22 09:30: WBC 28.5 H, RBC 4.52 L, Hgb 14.4, Hct 42.9, MCV 94.9 H, MCH 31.9, MCHC 33.6, RDW Std Deviation 46.7 H, RDW Coeff of Moses 13.3, Plt Count 152, MPV 11.6, Immature Gran % (Auto) 2.800 H, Neut % (Auto) 88.7 H, Lymph % (Auto) 2.4 L, [place] % (Auto) 5.6, Eos % (Auto) 0.3, Baso % (Auto) 0.2, Absolute Neuts (auto) 25.2 H, Absolute Lymphs (auto) 0.68 L, Nucleated RBC % 0, Differential Comment SCANNED, Diff Path Review May foll, Plt Morphology Comment LARGE 04/17/22 09:30: PT 13.5, INR 1.1, APTT 25.4 04/17/22 09:30: Sodium 140, Potassium 3.3 L, Chloride 110 H, Carbon Dioxide 26.0, Anion Gap 4 L, BUN 24 H, Creatinine 1.39 H, Estim Creat Clear Calc 70.25, Est GFR (MDRD) Af Amer 67, Est GFR (MDRD) Non-Af 56 L, BUN/Creatinine Ratio 17.3, Glucose 112 H, Calcium 9.1, Total Bilirubin 0.80, AST 14 L, ALT 18, Alkaline Phosphatase 53, Total Protein 6.9, Albumin 3.3, Globulin 3.6, Albumin/Globulin Ratio 0.9 04/17/22 09:30: Lactic Acid 1.6 04/17/22 10:50: Urine Color Yellow, Urine Clarity Clear, Urine pH 8.0, Ur Specific [place] 1.010, Urine Protein Negative, Urine Glucose (UA) Normal, Urine Ketones Negative, Urine Occult Blood 250 H, Urine Nitrite Negative, Urine Bilirubin Negative, Urine Urobilinogen Normal, Ur Leukocyte Esterase Negative, Urine RBC 10-25 SEEN, Urine WBC 0 SEEN, Ur Squamous Epith Cells 0 SEEN, Amorphous Sediment 2+, Urine Bacteria 0 SEEN, Urine Mucus 0 SEEN 04/17/22 14:35: Lactic Acid 1.4 04/18/22 05:07: WBC 23.2 H, RBC 4.05 L, Hgb 12.8 L, Hct 40.1, MCV 99.0 H, MCH 31.6, MCHC 31.9 L D, RDW Std Deviation 51.3 H, RDW Coeff of Moses 14.1, Plt Count 164, MPV 11.5, Immature Gran % (Auto) 1.100 H, Neut % (Auto) 91.2 H, Lymph % (Auto) 4.5 L, [place] % (Auto) 2.9, Eos % (Auto) 0.0, Baso % (Auto) 0.3, Absolute Neuts (auto) 21.2 H, Absolute Lymphs (auto) 1.04, Nucleated RBC % 0, Differential Comment SCANNED 04/18/22 05:07: Sodium 140, Potassium 3.9, Chloride 110 H, Carbon Dioxide 27.0, Anion Gap 3 L, BUN 16, Creatinine 1.04, Estim Creat Clear Calc 91.41, Est GFR (MDRD) Af Amer 94, Est GFR (MDRD) Non-Af 78, BUN/Creatinine Ratio 15.4, Glucose 120 H, Calcium 8.1 L, Total Bilirubin 0.50, AST 27, ALT 34, Alkaline Phosphatase 47, Total Protein 6.4, Albumin 2.7 L, Globulin 3.7, Albumin/Globulin Ratio 0.7 L Micro: Microbiology 04/17/22 11:55 Nasal Secretion SARS-CoV-2 Antigen (Rapid) - Final Radiography Diagnostic Testing: Radiology Impression Chest X-Ray 04/17/22 09:09 IMPRESSION: Poor inspiration with some bibasilar atelectasis. Electronically Signed: Jean Velasquez MD at 11:51 EDT Reading Location ID and State: [address] [place] [address] Tel , Service support , Physical Exam Const alert and no apparent distress Resp normal respiratory effort, no retractions, no use of accessory muscles and clear to auscultation bilaterally Cardio regular rate, regular rhythm, S1 normal heart sound and S2 normal heart sound GI normal to inspection, nondistended, normoactive bowel sounds, soft to palpation, non-tender and non-distended Assessment & Plan Assessment/Plan (1) Sepsis: QUALIFIERS: Sepsis acute organ dysfunction status: without acute organ dysfunction Sepsis type: sepsis due to unspecified organism Qualified Code(s): A41.9 - Sepsis, unspecified organism PLAN: Present on admission and now resolved secondary to cellulitis A qSOFA of 2 with a tachypnea of 22 and a systolic blood pressure of 90. Patient received IV fluids which did improve. We will continue with IV fluids on the floor. Treat the underlying infection Follow-up cultures Patient is did check him for COVID as his initial symptoms of her nausea vomiting and headache. The rapid COVID was negative. (2) Cellulitis of left leg: PLAN: Appears worse today and with some erythema in his groin which I think is more lymphangitis. No clear source of etiology, such as a wound or laceration Given the rapid onset I suspect this is more of a MRSA infection Antibiotics with vancomycin Check MRSA swab I doubt gram-negative but given that it clearly looks worse than it did yesterday we will discontinue the ampicillin/sulbactam and start him on piperacillin/tazobactam PLAN: Plan Nicotine abuse: patient requesting nicotine patch VTE prophylaxis with enoxaparin Disposition: To be determined. Given his worsening cellulitis today despite otherwise looking better patient needs to be in the hospital least for another 24 hours. Ideally want to see more improvement of his cellulitis and make sure that he is continue to remain hemodynamically stable. Another day will also allow us to see if there is any results that have come back with the blood cultures which are thus far negative. Case discussed with the patient and significant other at bedside. She seemed worried about merited details but I tried to reassure her that clinically he is overall better and particularly since that he is no longer septic. Did acknowledge that this is not typical where the erythema does get worse as someone is improving but it does happen. Reassurance provided to them both, the patient did seem to be fine with it and after further discussion the patient's significant other did seem to believe but I told him not to hesitate if they do have any questions. Charges/Coding Visit Charges Inpatient E&M: 42363 Subs Hosp L2
[2022-04-18] MEDS: Enoxaparin 40 MG/0.4 ML Syringe SC (09:47)
[2022-04-18] MEDS: Vancomycin IV 1,000 MG/200 ML BAG 200 MG IV (09:52)
[2022-04-18] MEDS: Ondansetron 4 MG/2 ML Vial IV (12:47)
[2022-04-18] MEDS: Acetaminophen 325 MG Tablet 650 MG PO ×2 (14:30→21:30)
[2022-04-18] MEDS: 0.9% Saline Lock 10 ML Syringe IV (21:30)
[2022-04-18 23:17] LABS: Vancomycin, Trough Level 8.9 ug/mL (5.0-15.0)
[2022-04-19] VITALS (11 sets, daily range): BP systolic 116–134; BP diastolic 65–74; PULSE 94–110; RESP 16–18; TEMP 36.8–38.3; O2SAT 94–98
--- NOTE | 2022-04-19 00:04 | PCM.RX.CS ---
Consult Pharmacy has been consulted to manage selected antiobiotic: Vancomycin Type of Consult: Follow-up Suspected Infection: Skin/Soft tissue Prior Doses of Antibiotics Received/Current Regimen: Medications Vancomycin HCl 1,750 mg/ (Sodium Chloride) 535 mls @ 250 mls/hr IV Q12H COUNT INCLUDES THE [facility] Last Admin: 04/18/22 23:50 Dose: 250 mls/hr Discontinued Medications Vancomycin HCl (Vancomycin) 1,000 mg in 200 mls @ 200 mls/hr IV Q12H COUNT INCLUDES THE [facility] Last Admin: 04/18/22 23:27 Dose: Not Given Labs: Sodium 140 mmol/L (136-145) 04/18/22 05:07 Potassium 3.9 mmol/L (3.5-5.1) 04/18/22 05:07 Chloride 110 mmol/L (98-107) H 04/18/22 05:07 Carbon Dioxide 27.0 mmol/L (21.0-32.0) 04/18/22 05:07 Anion Gap 3 (5-15) L 04/18/22 05:07 BUN 16 mg/dL (7-18) 04/18/22 05:07 Creatinine 1.04 mg/dL (0.70-1.30) 04/18/22 05:07 Est GFR (MDRD) Af Amer 94 mL/min (>60) 04/18/22 05:07 Est GFR (MDRD) Non-Af 78 mL/min (>60) 04/18/22 05:07 BUN/Creatinine Ratio 15.4 RATIO (10-20) 04/18/22 05:07 Glucose 120 mg/dL (74-106) H 04/18/22 05:07 Vancomycin Trough 8.9 ug/mL (5.0-15.0) 04/18/22 22:17 Microbiology: Microbiology 04/17/22 10:50 Urine, Clean Catch Urine Culture - Preliminary Culture exhibits no growth. 04/17/22 11:55 Nasal Secretion SARS-CoV-2 Antigen (Rapid) - Final Weight used for dosin.9 kg Estimated Creatinine Clearance: 91 Goal Trough: 15-20 mcg/mL Pharmacy Plan for Drug Dosing: Vancomycin trough was low, at 8.9. This was below the target range of 15-20, in part due to the improvement in renal clearance. Per aminoglycoside dosing calculator, [place] dose [place] 1750mg q12h should give an estimated trough of 17.0. Another trough will be drawn prior to the 4th dose of this new regimen. Pharmacy Service will continue to monitor and adjust dosing as required. Follow-Up Labs: Trough Vancomycin Labs to be done on [date and time ordered]: 04/20/22 @1100
[2022-04-19] MEDS: Calcium Carbonate 500 MG Tablet PO (00:46)
[2022-04-19] MEDS: Acetaminophen 325 MG Tablet 650 MG PO ×3 (04:02→21:00)
--- NOTE | 2022-04-19 05:19 | NURSING ---
all documentation completed by Nadeen reviewed by this RN
[2022-04-19 06:46] LABS: Absolute Lymphocyte Count 1.13 X10^3/uL (0.83-4.51); Absolute Neutrophil Count 15.6 X10^3/uL (2.0-7.7); Basophil# 0.05 X10^3/uL; Basophil% 0.3 % (0-1); Eosinophil# 0.02 X10^3/uL; Eosinophils% 0.1 % (0-5); Hemoglobin 12.4 g/dL (13.0-16.5); Lymphocyte # 1.13 X10^3/ul (0.83-4.51); Lymphocyte % 6.4 % (19-41); Mean Corp Hgb Conc 32.6 g/dL (32-36); Mean Corpuscular Hgb 30.8 pg (27.0-32.0); Mean Corpuscular Volume 94.5 fL (80-94); Mean Platelet Vol. 10.5 fl (6.2-12.0); Monocyte# 0.53 X10^3/uL; NRBC Flagged by Analyzer 0 % (0-5); Neutrophil # 15.62 X10^3/uL (2.7-7.7); Neutrophil % 89.1 % (47-70); Platelet Count 147 K/mm3 (150-450); RBC Distribution Width CV 13.9 % (11.6-14.6); RBC Distribution Width SD 49.1 fl (35.1-43.9); Red Blood Count 4.02 M/mm3 (4.6-6.2); White Blood Count 17.5 K/mm3 (4.4-11.0)
[2022-04-19 07:22] LABS: Anion Gap 6 (5-15); BUN 11 mg/dL (7-18); BUN/Creat Ratio 10.5 RATIO (10-20); Calcium,Total 8.3 mg/dL (8.5-10.1); Chloride 108 mmol/L (98-107); Creatinine, Serum 1.05 mg/dL (0.70-1.30); EST Glomerular Filtration Rate 77 mL/min (>60); Est Glom Filt Rate - Afr Amer 93 mL/min (>60); Estimated Creatinine Clearance 90.54 ml/min; Glucose 121 mg/dL (74-106); Potassium 3.2 mmol/L (3.5-5.1); Sodium Level 139 mmol/L (136-145)
[2022-04-19] MEDS: Enoxaparin 40 MG/0.4 ML Syringe SC (09:02)
[2022-04-19] MEDS: Potassium Chloride Oral Tablet 20 MEQ 40 MEQ PO (09:02)
[2022-04-19] MEDS: Ibuprofen 400 MG Tablet PO (11:57)
[2022-04-19 12:23] LABS: Pathologist Review Reviewed
--- NOTE | 2022-04-19 12:30 | PCM.PN.HOSP ---
Subjective Subjective Patient still spiking temperatures with a T-max of 101.7 overnight. White count is trending down and patient states he is clinically is feeling better however not back to baseline. 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 His last cellulitic infection was approximately 3 years and started from a spider bite. He states he actually did see a spider bite him at that time. He indicated he was sent home on antibiotics and developed a rash from one of them however is unable to remember what they were. Upon review he was sent home on Keflex and clindamycin and was transitioned to doxycycline after he developed a rash on the other 2 antibiotics. He has no known nidus for infection at this time. He states his leg is improved today overall compared to yesterday when the erythema extended up his leg into his left groin Objective Data Objective Data Vital Signs: Vital Signs Temp Pulse Resp BP Pulse Ox O2 Del Method 101 F H 99 16 118/67 96 Room Air 04/19/22 11:57 04/19/22 08:58 04/19/22 08:58 04/19/22 08:58 04/19/22 08:58 04/19/22 08:58 Oxygen Delivery Method Room Air Weight: 89.9 kg Body Mass Index (BMI) 24.7 Intake & Output: Intake and Output for Last 24 Hours 04/17/22 04/18/22 04/19/22 23:59 23:59 23:59 Intake Total 4815.67 / 4815.67 1035 / 1035 Balance 4815.67 / 4815.67 1035 / 1035 Lab / Micro Data Result Diagrams: 04/19/22 06:40 04/19/22 06:40 Labs: Laboratory Results - last 24 hr 04/17/22 09:30: Diff Path Review Reviewed 04/18/22 22:17: Vancomycin Trough 8.9 04/19/22 06:40: WBC 17.5 H, RBC 4.02 L, Hgb 12.4 L, Hct 38.0 L, MCV 94.5 H, MCH 30.8, MCHC 32.6, RDW Std Deviation 49.1 H, RDW Coeff of Moses 13.9, Plt Count 147 L, MPV 10.5, Immature Gran % (Auto) 1.100 H, Neut % (Auto) 89.1 H, Lymph % (Auto) 6.4 L, [place] % (Auto) 3.0, Eos % (Auto) 0.1, Baso % (Auto) 0.3, Absolute Neuts (auto) 15.6 H, Absolute Lymphs (auto) 1.13, Nucleated RBC % 0 04/19/22 06:40: Sodium 139, Potassium 3.2 L, Chloride 108 H, Carbon Dioxide 25.0, Anion Gap 6, BUN 11, Creatinine 1.05, Estim Creat Clear Calc 90.54, Est GFR (MDRD) Af Amer 93, Est GFR (MDRD) Non-Af 77, BUN/Creatinine Ratio 10.5, Glucose 121 H, Calcium 8.3 L Micro: Microbiology 04/17/22 10:50 Urine, Clean Catch Urine Culture - Final Culture exhibits no growth. 04/17/22 10:17 Blood Culture (Wb) - Left Wrist Blood Culture - Preliminary No growth in 48 hours. 04/17/22 09:50 Blood Culture (Wb) - No Site/Description Given Blood Culture - Preliminary No growth in 48 hours. 04/17/22 11:55 Nasal Secretion SARS-CoV-2 Antigen (Rapid) - Final Physical Exam Const Constitutional Narrative: Upper middle-aged white male sitting up in bed, is at the bedside, patient appears comfortable and nontoxic at this time, left lower extremity is elevated in bed and markedly erythematous. HEENT head/scalp atraumatic, moist oral mucous membranes and oropharynx normal HEENT Narrative: Mallampati is 2, no thrush Resp normal respiratory effort, no retractions, no use of accessory muscles and clear to auscultation bilaterally Auscultation: Negative for crackles, rales, rhonchi or wheezes Cardio regular rate, regular rhythm, S1 normal heart sound, S2 normal heart sound, no murmurs, no rub, no gallops, no clicks and no JVD GI normal to inspection, nondistended, normoactive bowel sounds, soft to palpation, non-tender and non-distended Extremity Extremity Narrative: Left lower extremity edema, tenderness, extensive erythema extending up the anterior medial thigh into the groin, area is outlined and retracted some but extended some outside the line made yesterday, no cyanosis or clubbing Skin No no rashes or lesions noted, no wounds, skin turgor normal, no jaundice, no petechiae and no mottling General Skin Exam: no breakdown Lesions: no lesions Trauma: no lacerations or abrasions Neuro oriented x3, moves all extremities and no focal motor deficits Sensorium / Orientation: awake, alert, oriented to person, oriented to place and oriented to time Speech: speech normal Psych affect normal Psych Narrative: Pleasant and appropriately interactive Assessment & Plan Assessment/Plan (1) Cellulitis of left leg: (2) Leukocytosis: (3) Anemia: (4) Thrombocytopenia: (5) Acute pain of left lower extremity: PLAN: Plan Left lower extremity cellulitis -qSOFA of 2 with a tachypnea of 22 and a systolic blood pressure of 90 and therefore patient did not meet criteria for sepsis criteria for provider -Responded well to IV fluids -Patient was on vancomycin and Unasyn upon admission and broadened to vancomycin and Zosyn yesterday with extension of erythema up into the left groin -Count improving from 28,000-17,000 today -No nidus identified -Patient with continued fevers however curve seems to be improving -Blood and urine cultures are negative for any growth -Continue Vanco and Zosyn -Consult infectious disease -Keflex and clindamycin listed as allergies with developed rash on previous discharge -Immunoglobulin levels pending Leukocytosis -Improving -Continue antibiotics as above Mild normocytic anemia -Suspect related to acute infection -Stable at 12 -No acute bleeding noted -Continue to monitor Thrombocytopenia -Suspect related to infection however could be related to antibiotics as well -Mildly decreased at 147,000 -Continue to monitor Hypokalemia -40 mill equivalents p.o. potassium given -Repeat in a.m. -If remains low check magnesium level Hyperglycemia -Fasting blood sugars appear to be in the 120 region -Could be reactive -With recurrent left lower extremity cellulitis we will check A1c Tobacco abuse -Recommend cessation -Nicotine patch DVT prophylaxis -Continue enoxaparin Charges/Coding Visit Charges Inpatient E&M: 05826 Subs Hosp L2
--- NOTE | 2022-04-19 14:08 | CON.PCM.ID_ITS ---
Assessment & Plan Assessment/Plan (1) Cellulitis of left leg: PLAN: wbc and fever improving. No purulence. Redness starting to improve. No clear inciting event. Cont vanc/zosyn for now, but likely will be able to narrow soon. Bcx 04/17 neg so far. Will follow, thank you HPI Consult Data Date of Consult: 04/19/22 HPI Narrative Reason for Consultation: cellulitis HPI Narrative: HAWA BAKER, is a 61 M who presented 04/17 with one day of fever, rigors, n/v, headache. Has chronic LLE edema after spider bite and cellulitis 3 years ago. Found to have rapidly progressive LLE redness, warmth, pain in ED as well as fever almost 103. Admitted on vanc/unasyn, broadened to vanc/zosyn. Feeling better today, redness starting to recede. Had come up to mid thigh. No known inciting event. Full ROS performed and neg except as noted above. [facility] Medical History History of transient ischemic attack (TIA) Neck/Back Pain Tobacco abuse Home Medications Lactobacillus acidophilus 10 billion cell capsule 1 cap PO DAILY immune health 04/20/19 [History Last Taken 04/20/19] multivitamin 1 tab PO DAILY supplement 04/17/22 [History Last Taken Unknown] Allergy/AdvReac Type Severity Reaction Status Date / Time clindamycin Allergy Mild rash Verified 04/19/22 09:41 ancef Allergy Mild rash Uncoded 04/19/22 09:41 Social History Smoking Status: Current every day smoker tobacco type: cigarettes alcohol intake: never Physical Exam Const alert, oriented x3 and no apparent distress General Appearance: cooperative HEENT normocephalic and head/scalp atraumatic Eyes PERRL and EOMs intact bilaterally Neck supple and No nodes Resp normal air movement and clear to auscultation bilaterally Cardio regular rate and regular rhythm GI soft to palpation, non-tender and non-distended Extremity General Extremity: edema Skin Skin Narrative: L ricardo/calf with diffuse redness/warmth/mild soreness with erythema extending some to foot and up medial thigh Neuro CN's II-XII intact bilaterally Lab / Micro Data Attestation: I reviewed the patient's lab results. Result Diagrams: 04/19/22 06:40 04/19/22 06:40 Labs: Laboratory Results - last 24 hr 04/17/22 09:30: Diff Path Review Reviewed 04/18/22 22:17: Vancomycin Trough 8.9 04/19/22 06:40: WBC 17.5 H, RBC 4.02 L, Hgb 12.4 L, Hct 38.0 L, MCV 94.5 H, MCH 30.8, MCHC 32.6, RDW Std Deviation 49.1 H, RDW Coeff of Moses 13.9, Plt Count 147 L, MPV 10.5, Immature Gran % (Auto) 1.100 H, Neut % (Auto) 89.1 H, Lymph % (Auto) 6.4 L, [place] % (Auto) 3.0, Eos % (Auto) 0.1, Baso % (Auto) 0.3, Absolute Neuts (auto) 15.6 H, Absolute Lymphs (auto) 1.13, Nucleated RBC % 0 04/19/22 06:40: Sodium 139, Potassium 3.2 L, Chloride 108 H, Carbon Dioxide 25.0, Anion Gap 6, BUN 11, Creatinine 1.05, Estim Creat Clear Calc 90.54, Est GFR (MDRD) Af Amer 93, Est GFR (MDRD) Non-Af 77, BUN/Creatinine Ratio 10.5, Glucose 121 H, Calcium 8.3 L Micro: Microbiology 04/17/22 10:50 Urine, Clean Catch Urine Culture - Final Culture exhibits no growth. 04/17/22 10:17 Blood Culture (Wb) - Left Wrist Blood Culture - Preliminary No growth in 48 hours. 04/17/22 09:50 Blood Culture (Wb) - No Site/Description Given Blood Culture - Preliminary No growth in 48 hours.
[2022-04-20] VITALS (10 sets, daily range): BP systolic 104–120; BP diastolic 62–82; PULSE 81–103; RESP 16–18; TEMP 36.4–37.4; O2SAT 97–98
[2022-04-20] MEDS: Ibuprofen 400 MG Tablet PO ×2 (01:32→20:06)
[2022-04-20 04:07] LABS: Immunoglobulin A 240 mg/dL (90-386); Immunoglobulin G 1119 mg/dL (603-1613)
[2022-04-20] MEDS: Acetaminophen 325 MG Tablet 650 MG PO ×2 (05:56→18:24)
[2022-04-20 06:41] LABS: Absolute Neutrophil Count 9.5 X10^3/uL (2.0-7.7); Basophil# 0.06 X10^3/uL; Basophil% 0.5 % (0-1); Eosinophil# 0.17 X10^3/uL; Eosinophils% 1.4 % (0-5); Hematocrit 36.6 % (40-54); Hemoglobin 12.2 g/dL (13.0-16.5); Lymphocyte % 10.1 % (19-41); Mean Corp Hgb Conc 33.3 g/dL (32-36); Mean Corpuscular Hgb 31.9 pg (27.0-32.0); Mean Corpuscular Volume 95.6 fL (80-94); Mean Platelet Vol. 11.3 fl (6.2-12.0); Monocyte# 0.88 X10^3/uL; Monocyte% 7.4 % (0-10); NRBC Flagged by Analyzer 0 % (0-5); Neutrophil # 9.49 X10^3/uL (2.7-7.7); Neutrophil % 79.8 % (47-70); Platelet Count 148 K/mm3 (150-450); RBC Distribution Width CV 14.2 % (11.6-14.6); RBC Distribution Width SD 49.7 fl (35.1-43.9); Red Blood Count 3.83 M/mm3 (4.6-6.2); White Blood Count 11.9 K/mm3 (4.4-11.0)
[2022-04-20 07:04] LABS: Anion Gap 3 (5-15); BUN 11 mg/dL (7-18); BUN/Creat Ratio 7.5 RATIO (10-20); Calcium,Total 8.6 mg/dL (8.5-10.1); Chloride 112 mmol/L (98-107); Creatinine, Serum 1.46 mg/dL (0.70-1.30); EST Glomerular Filtration Rate 52 mL/min (>60); Est Glom Filt Rate - Afr Amer 63 mL/min (>60); Estimated Creatinine Clearance 65.11 ml/min; Glucose 119 mg/dL (74-106); Potassium 3.5 mmol/L (3.5-5.1); Sodium Level 141 mmol/L (136-145)
[2022-04-20 07:32] LABS: Hemoglobin A1c 5.5 % (3.8-5.6)
[2022-04-20] MEDS: Enoxaparin 40 MG/0.4 ML Syringe SC (10:04)
--- NOTE | 2022-04-20 10:17 | PCM.PN.ID ---
Physical Exam Narrative Feeling better, no fever, leg less sore Const alert and no apparent distress Resp normal air movement and clear to auscultation bilaterally Cardio regular rate and regular rhythm GI soft to palpation, non-tender and non-distended Skin Skin Narrative: LLE swelling. Redness/warmth/pain improving ID ID: Route of nutrition/ use of supplements: [] Nutritional Intake: [] IV Site: [] Hill Catheter: [] Assessment & Plan Assessment/Plan (1) Cellulitis of left leg: PLAN: wbc and fever much better. No purulence. Redness starting to improve. No clear inciting event. Bcx neg so far. Cont zosyn, will stop vanc, plan on home with po abx soon. Will follow
[2022-04-20 10:54] LABS: Bacteria 0 SEEN /hpf (None Seen); Mucous, Urine 0 SEEN /hpf (<or=2+); Squamous Epithelial Cells - UA 0 SEEN /hpf (0-5); White Blood Cells 0 SEEN /hpf (0-5)
[2022-04-20 10:57] LABS: Glucose, Dipstick Normal (Normal); Ketone-Dipstick Negative (Negative); Leukocyte Esterase-Dipstick Negative /ul (Negative); Nitrite-Dipstick Negative (Negative); Occult Blood-Urine 250 /ul (Negative); Protein-Dipstick 15 mg/dl (Negative); Urine Bilirubin Dipstick Negative (Negative); Urine Urobilinogen Normal (Normal)
[2022-04-20 10:58] LABS: Urine Sodium 53 mmol/L (Not Establ.)
[2022-04-20 11:06] LABS: Color, Urine Yellow (Yellow); Urine Clarity Clear (Clear)
[2022-04-20 11:22] LABS: Red Blood Cells-Urine 10-25 SEEN /hpf (0-5)
--- NOTE | 2022-04-20 14:17 | PN.HOSP_ITS ---
Objective Data Objective Data Vital Signs: Vital Signs Temp Pulse Resp BP Pulse Ox O2 Del Method 97.6 F L 87 17 104/82 H 98 Room Air 04/20/22 09:17 04/20/22 09:17 04/20/22 09:17 04/20/22 09:17 04/20/22 09:17 04/20/22 09:17 Oxygen Delivery Method Room Air Weight: 89.9 kg Body Mass Index (BMI) 24.7 Intake & Output: Intake and Output for Last 24 Hours 04/18/22 04/19/22 04/20/22 23:59 23:59 23:59 Intake Total 2380 / 2380 875 / 875 Balance 2380 / 2380 875 / 875 Lab / Micro Data Result Diagrams: 04/20/22 06:00 04/20/22 06:00 Labs: Laboratory Results - last 24 hr 04/20/22 06:00: Hemoglobin A1c 5.5 04/20/22 06:00: WBC 11.9 H, RBC 3.83 L, Hgb 12.2 L, Hct 36.6 L, MCV 95.6 H, MCH 31.9, MCHC 33.3, RDW Std Deviation 49.7 H, RDW Coeff of Moses 14.2, Plt Count 148 L, MPV 11.3, Immature Gran % (Auto) 0.800, Neut % (Auto) 79.8 H, Lymph % (Auto) 10.1 L, [place] % (Auto) 7.4, Eos % (Auto) 1.4, Baso % (Auto) 0.5, Absolute Neuts (auto) 9.5 H, Absolute Lymphs (auto) 1.20, Nucleated RBC % 0 04/20/22 06:00: Sodium 141, Potassium 3.5, Chloride 112 H, Carbon Dioxide 26.0, Anion Gap 3 L, BUN 11, Creatinine 1.46 H, Estim Creat Clear Calc 65.11, Est GFR (MDRD) Af Amer 63, Est GFR (MDRD) Non-Af 52 L, BUN/Creatinine Ratio 7.5 L, Glucose 119 H, Calcium 8.6 04/20/22 10:37: Urine Color Yellow, Urine Clarity Clear, Urine pH 6.0, Ur Specific [place] 1.010, Urine Protein 15 H, Urine Glucose (UA) Normal, Urine Ketones Negative, Urine Occult Blood 250 H, Urine Nitrite Negative, Urine Bilirubin Negative, Urine Urobilinogen Normal, Ur Leukocyte Esterase Negative, Urine RBC 10-25 SEEN, Urine WBC 0 SEEN, Ur Squamous Epith Cells 0 SEEN, Urine Bacteria 0 SEEN, Urine Mucus 0 SEEN 04/20/22 10:37: Ur Random Sodium 53 Micro: Microbiology 04/17/22 10:50 Urine, Clean Catch Urine Culture - Final Culture exhibits no growth. 04/17/22 10:17 Blood Culture (Wb) - Left Wrist Blood Culture - Preliminary No growth in 48 hours. 04/17/22 09:50 Blood Culture (Wb) - No Site/Description Given Blood Culture - Preliminary No growth in 48 hours. 04/17/22 11:55 Nasal Secretion SARS-CoV-2 Antigen (Rapid) - Final Physical Exam Const alert, oriented x3, no apparent distress, average body habitus, healthy appearing and well nourished Constitutional Narrative: Upper middle-aged white male sitting up in bed, is at the bedside, patient appears comfortable and nontoxic at this time HEENT normocephalic, head/scalp atraumatic, moist oral mucous membranes and oropharynx normal Resp normal respiratory effort, no retractions, no use of accessory muscles and clear to auscultation bilaterally Auscultation: Negative for crackles, rales, rhonchi or wheezes Cardio regular rate, regular rhythm, S1 normal heart sound, S2 normal heart sound, no murmurs, no rub, no gallops, no clicks and no JVD Cardio Narrative: Tachycardic. Regular. Sinus tachycardia on telemetry. GI normal to inspection, nondistended, normoactive bowel sounds, soft to palpation, non-tender and non-distended Extremity no clubbing, cyanosis or edema Extremity Narrative: Left lower extremity edema, tenderness, remains erythematous in the distal lower extremity but the thigh erythema has resolved, tenderness has improved, swelling in the distal lower extremity is approximately the same, no lesions or skin breakdown noted Neuro oriented x3, moves all extremities and no focal motor deficits Sensorium / Orientation: awake, alert, oriented to person, oriented to place and oriented to time Speech: speech normal Psych affect normal Psych Narrative: Pleasant and appropriately interactive Assessment & Plan Assessment/Plan (1) Cellulitis of left leg: (2) Leukocytosis: (3) Anemia: (4) Thrombocytopenia: (5) Acute pain of left lower extremity: (6) MERRILL (acute kidney injury): PLAN: Plan Left lower extremity cellulitis -qSOFA of 2 with a tachypnea of 22 and a systolic blood pressure of 90 and therefore patient did not meet criteria for sepsis criteria for provider -Responded well to IV fluids -Continue Zosyn, vancomycin discontinued by infectious disease -White count has improved to 11,000 -No nidus identified -Fever curve dramatically improved with T-max in last 24 hours being 101 yesterday at 12 PM -Blood and urine cultures are negative for any growth -Appreciate infectious disease input -Immunoglobulins are pending -Anticipate discharge on oral antibiotics in the next 24 hours MERRILL -Baseline serum creatinine appears to be between 0.9 and 1.1 -Current serum creatinine is up to 1.46 -UA obtained and patient does not appear dry -Random sodium was 53 -Suspect vancomycin induced -Vancomycin discontinued -Repeat BMP in a.m. Leukocytosis -Improving -Continue antibiotics as above Mild normocytic anemia -Suspect related to acute infection -Stable at 12 -No acute bleeding noted -Continue to monitor Thrombocytopenia -Suspect related to infection however could be related to antibiotics as well -Mildly decreased at 148,000 but is stabilizing the last 24 hours -Continue to monitor Hypokalemia - resolved -Repeat BMP in a.m. Hyperglycemia -A1c is 5.5 -Suspect reactive Tobacco abuse -Recommend cessation -Nicotine patch DVT prophylaxis -Continue enoxaparin Charges/Coding Visit Charges Inpatient E&M: 04452 [facility] Hosp L2
[2022-04-20 16:54] LABS: Immunoglobulin M 83 mg/dL (20-172)
[2022-04-21 03:00] VITALS: BP 115/72; PULSE 86; RESP 18; TEMP 36.3; O2SAT 99
[2022-04-21] MEDS: Ibuprofen 400 MG Tablet PO (03:05)
[2022-04-21 03:28] VITALS: PULSE 73
[2022-04-21 04:43] LABS: Absolute Lymphocyte Count 1.82 X10^3/uL (0.83-4.51); Absolute Neutrophil Count 6.9 X10^3/uL (2.0-7.7); Basophil# 0.05 X10^3/uL; Basophil% 0.5 % (0-1); Eosinophil# 0.33 X10^3/uL; Eosinophils% 3.2 % (0-5); Hemoglobin 11.8 g/dL (13.0-16.5); Lymphocyte # 1.82 X10^3/ul (0.83-4.51); Lymphocyte % 17.8 % (19-41); Mean Corp Hgb Conc 31.9 g/dL (32-36); Mean Corpuscular Hgb 31.1 pg (27.0-32.0); Mean Corpuscular Volume 97.4 fL (80-94); Mean Platelet Vol. 11.2 fl (6.2-12.0); Monocyte% 10.7 % (0-10); NRBC Flagged by Analyzer 0 % (0-5); Neutrophil # 6.89 X10^3/uL (2.7-7.7); Neutrophil % 67.2 % (47-70); Platelet Count 173 K/mm3 (150-450); RBC Distribution Width CV 14.3 % (11.6-14.6); RBC Distribution Width SD 51.3 fl (35.1-43.9); White Blood Count 10.3 K/mm3 (4.4-11.0)
[2022-04-21 05:13] LABS: Anion Gap 4 (5-15); BUN 11 mg/dL (7-18); BUN/Creat Ratio 7.1 RATIO (10-20); Calcium,Total 8.8 mg/dL (8.5-10.1); Chloride 110 mmol/L (98-107); Creatinine, Serum 1.55 mg/dL (0.70-1.30); EST Glomerular Filtration Rate 49 mL/min (>60); Est Glom Filt Rate - Afr Amer 59 mL/min (>60); Estimated Creatinine Clearance 61.33 ml/min; Glucose 98 mg/dL (74-106); Potassium 3.5 mmol/L (3.5-5.1); Sodium Level 140 mmol/L (136-145)
[2022-04-21 07:00] VITALS: PULSE 84
[2022-04-21 07:36] VITALS: O2SAT 98
[2022-04-21 09:20] VITALS: BP 132/51; PULSE 88; RESP 16; TEMP 36.8; O2SAT 98
[2022-04-21] MEDS: Enoxaparin 40 MG/0.4 ML Syringe SC (09:24)
[2022-04-21] MEDS: Acetaminophen 325 MG Tablet 650 MG PO (09:29)
--- NOTE | 2022-04-21 13:48 | DS.PCM_ITS ---
Providers Date of Admission: 04/17/22 Date of Discharge: 04/21/22 Primary Care Physician: GENEVIEVE Avery Consultations 04/19/22 09:37 Consult: Infectious Disease Routine Consulting Provider: Eulogio Marin Reason for Consult: Recurrent LLE Cellulitis EMERGENT Consult: No MD Notified: Yes Date Notified: 04/19/22 Time Notified: 09:38 Method of Notification: Text Reason For Visit: SEPSIS, LLE CELLULITIS Diagnosis Discharge Diagnosis (1) Cellulitis of left leg: Status: Acute Code(s): L03.116 - Cellulitis of left lower limb (2) Leukocytosis: Status: Acute Code(s): D72.829 - Elevated white blood cell count, unspecified (3) Anemia: Status: Acute Code(s): D64.9 - Anemia, unspecified (4) Thrombocytopenia: Status: Acute Code(s): D69.6 - Thrombocytopenia, unspecified (5) Acute pain of left lower extremity: Status: Acute Code(s): M79.605 - Pain in left leg (6) MERRILL (acute kidney injury): Status: Acute Code(s): N17.9 - Acute kidney failure, unspecified Plan Left lower extremity cellulitis -qSOFA of 2 with a tachypnea of 22 and a systolic blood pressure of 90 and therefore patient did not meet criteria for sepsis criteria for provider -Responded well to IV fluids -Continue Zosyn, vancomycin discontinued by infectious disease -White count has improved to 11,000 -No nidus identified -Fever curve dramatically improved with T-max in last 24 hours being 101 yesterday at 12 PM -Blood and urine cultures are negative for any growth -Appreciate infectious disease input -Immunoglobulins are pending -Anticipate discharge on oral antibiotics in the next 24 hours MERRILL -Baseline serum creatinine appears to be between 0.9 and 1.1 -Current serum creatinine is up to 1.46 -UA obtained and patient does not appear dry -Random sodium was 53 -Suspect vancomycin induced -Vancomycin discontinued -Repeat BMP in a.m. Leukocytosis -Improving -Continue antibiotics as above Mild normocytic anemia -Suspect related to acute infection -Stable at 12 -No acute bleeding noted -Continue to monitor Thrombocytopenia -Suspect related to infection however could be related to antibiotics as well -Mildly decreased at 148,000 but is stabilizing the last 24 hours -Continue to monitor Hypokalemia - resolved -Repeat BMP in a.m. Hyperglycemia -A1c is 5.5 -Suspect reactive Tobacco abuse -Recommend cessation -Nicotine patch DVT prophylaxis -Continue enoxaparin Medications at Discharge Home Medications Lactobacillus acidophilus 10 billion cell capsule 1 cap PO DAILY immune health 04/20/19 multivitamin 1 tab PO DAILY supplement 04/17/22 cefdinir 300 mg capsule 300 mg PO BID #14 caps 04/21/22 tramadol 50 mg tablet (Ultram) 50 mg PO Q6H PRN pain #30 tabs 04/21/22 Hospital Course Operations None Procedures None and - Summary of Care Provided Minutes Spent on Discharge: 38 Hospital Course: Mr. Ellis is a 61-year-old white male who presented to the emergency department at [facility] on 04/17/2022 with left leg redness. The patient reported that he was fine the day prior to presentation but on the morning of admission he did not feel well. He had nausea, vomiting, headache and then developed erythema in his distal right lower extremity. On admission he reported a presentation similar to this approximately 3 years ago and was diagnosed with cellulitis at that time. The patient was borderline hypotensive with blood pressures in the 90s and tachycardic. He was treated with IV fluids and this subsequently resolved. On presentation the emergency department he had a temperature of 99.9, heart rate of 138, blood pressure of 96/51, respiratory rate of 18 and his pulse ox was 97% on room air. His T-max during his hospitalization was 101.7 but he reportedly had temperatures greater than 102 at home. During his hospital course his fever curve significantly improved with his last febrile episode being at noon on 04/19/2022. CBC on presentation showed a white count of 28.5 thousand, normal hemoglobin and his platelet count was 152,000. During his hospital course his white count trended down to normal on the day of discharge at 10.3, hemoglobin slightly trended down from 14-11.8 however he had been given quite a bit of fluids during his hospital course, and his platelet count initially trended down with a tha of 147,000 but was at 178,000 upon discharge. His chemistry panel on admission was overall unremarkable. He was initially placed on vancomycin and Unasyn but had spread of the erythema up into his left thigh and groin area and he was transitioned from Unasyn to Zosyn for broader coverage. With the vancomycin his serum creatinine trended up to 1.46 on 04/20/2022 but appeared to be stabilizing on 04/21/2022 because at that time is 1.55. UA and urine sodium was obtained and it appears that he was not dry and this is likely related to vancomycin. The vancomycin was discontinued on 04/20/2022 and the rate of rise of his serum creatinine dramatically decreased. I did recommend to the patient and his that he obtain a repeat BMP in the next 3 to 5 days to assure improvement in his serum creatinine. He was also instructed to avoid NSAIDs. He was evaluated by infectious disease after the spread of infection into his proximal thigh. With his white count normalizing his fever curve dramatically improving, we felt he was stable to discharge home on 04/21/2022. I discussed the case with infectious disease and they felt he could go home on Omnicef 300 mg p.o. twice daily for another 7 days. 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 We recommended elevation of his foot above his heart and Oni compression greater distal and proximal with removal of Oni bandage every 2-3 hours for skin checks. I also instructed him to obtain a repeat BMP in the next 3 to 5 days as noted above. He plans to follow-up with Gisselle Oscar NP and I have encouraged him to do so in the next week. Unfortunate we did not find a nidus for infections or his hospitalization. Immunoglobulins were obtained during his hospital course and found to be within normal range. I also recommend if his swelling does not improve that we possibly obtain a right lower extremity ultrasound to rule out DVT. He was clinically improving and we had a reason for his edema so this was not pursued during his hospital course. We have strongly encouraged tobacco cessation. Discharge diagnoses: Left lower extremity cellulitis MERRILL suspected secondary to vancomycin use Mild anemia Thrombocytopenia-resolved Leukocytosis-resolved Hypokalemia-resolved Hyperglycemia-improved--> hemoglobin A1c 5.5 Tobacco abuse Physical Exam Narrative Reports that he had a period last night where he is having increased pain in that leg and possibly increased swelling however he is feeling better today. Erythematous area seems to be retracting even further and has had no fevers in the last 36 hours. Const alert, oriented x3, no apparent distress, average body habitus, healthy appearing and well nourished Constitutional Narrative: Upper middle-aged white male sitting up in bed, is at the bedside, patient appears comfortable and nontoxic at this time General Appearance: cooperative, comfortable, well kempt and well developed HEENT normocephalic, head/scalp atraumatic, hearing grossly normal bilaterally, moist oral mucous membranes and oropharynx normal HEENT Narrative: Mallampati 2, no thrush Eyes PERRL, EOMs intact bilaterally and conjunctivae normal Eyes Narrative: No scleral icterus Neck no lymphadenopathy, supple and no JVD Neck Narrative: Trachea midline, no thyroid enlargement Resp normal respiratory effort, no retractions, no use of accessory muscles and clear to auscultation bilaterally Auscultation: Negative for crackles, rales, rhonchi or wheezes Cardio regular rate, regular rhythm, S1 normal heart sound, S2 normal heart sound, no murmurs, no rub, no gallops, no clicks and no JVD GI normal to inspection, nondistended, normoactive bowel sounds, soft to palpation, non-tender and non-distended Extremity Extremity Narrative: Left lower extremity edema, tenderness, remains erythematous in the distal lower extremity but retracting from the foot and the proximal distal lower extremity into the central lower leg area anteriorly, erythema in the thigh has completely resolved, still some tenderness in edema, no cyanosis or clubbing Skin No no rashes or lesions noted, no wounds, skin turgor normal, no jaundice, no petechiae and no mottling General Skin Exam: no breakdown Lesions: no lesions Trauma: no lacerations or abrasions Neuro oriented x3, CN's II-XII intact bilaterally, moves all extremities and no focal motor deficits Sensorium / Orientation: awake, alert, oriented to person, oriented to place and oriented to time Speech: speech normal Motor Exam: strength 5/5 throughout Psych affect normal Psych Narrative: Pleasant and appropriately interactive Weight / BMI Weight Weight: 89.9 kg Body Mass Index (BMI) 24.7 ABG / Lab / Microbiology Data Result Diagrams: 04/21/22 04:06 04/21/22 04:06 Laboratory: Laboratory Results - last 24 hr 04/19/22 06:40: IgG 1119, IgA 240, IgM 83 04/21/22 04:06: WBC 10.3, RBC 3.80 L, Hgb 11.8 L, Hct 37.0 L, MCV 97.4 H, MCH 31.1, MCHC 31.9 L, RDW Std Deviation 51.3 H, RDW Coeff of Moses 14.3, Plt Count 173, MPV 11.2, Immature Gran % (Auto) 0.600, Neut % (Auto) 67.2, Lymph % (Auto) 17.8 L, [place] % (Auto) 10.7 H, Eos % (Auto) 3.2, Baso % (Auto) 0.5, Absolute Neuts (auto) 6.9, Absolute Lymphs (auto) 1.82, Nucleated RBC % 0 04/21/22 04:06: Sodium 140, Potassium 3.5, Chloride 110 H, Carbon Dioxide 26.0, Anion Gap 4 L, BUN 11, Creatinine 1.55 H, Estim Creat Clear Calc 61.33, Est GFR (MDRD) Af Amer 59 L, Est GFR (MDRD) Non-Af 49 L, BUN/Creatinine Ratio 7.1 L, Glucose 98, Calcium 8.8 Microbiology: Microbiology 04/17/22 10:50 Urine, Clean Catch Urine Culture - Final Culture exhibits no growth. 04/17/22 10:17 Blood Culture (Wb) - Left Wrist Blood Culture - Preliminary No growth in 48 hours. 04/17/22 09:50 Blood Culture (Wb) - No Site/Description Given Blood Culture - Preliminary No growth in 48 hours. 04/17/22 11:55 Nasal Secretion SARS-CoV-2 Antigen (Rapid) - Final D/C Instructions Discharge Diet: No restrictions Discharge Activity: May Shower Return to work on: 04/28/22 Keep extremity elevated above heart level: Right Leg Call your doctor if you observe: Fever of 101 or Higher, Coldness, Increased Pain and Numbness or Tingling Meaningful Use Info Meaningful Use Diagnoses (Choose all that apply): None applicable Discharge Plan Admission Admit Date/Time: 04/17/22 11:56 Primary Reason for Your Visit: R DENEEN Cellulitis Attending Provider: Clair Payan Primary Care Provider: Maureen Lerma NP Consulting Providers: Dereje Hernandez ; Eulogio Marin Instructions Forms: Work / School Excuse Additional Instructions / Restrictions: 1. Please call PCP for Basic Metabolic profile to be done in 3-5 days to recheck renal function 2. Ok to use ONI bandage tighter at bottom than top for compression--remove every 2-3 hrs to check skin 3. Elevate R lower extremity as much as possible 4. I do recommend that you stop smoking Discharge Orders/Prescriptions Prescriptions: New tramadol [Ultram] 50 mg tablet 50 mg PO Q6H PRN (Reason: pain) Qty: 30 0RF cefdinir 300 mg capsule 300 mg PO BID Qty: 14 0RF Continued Lactobacillus acidophilus 1 EACH capsule 1 cap PO DAILY multivitamin Tablet 1 tab PO DAILY Referrals / Follow Up: Gisselle Oscar, UMANG-C [Med Staff - Adv Practice Prof] - In 1 Week (for hospital follow-up for Leg cellulitis ) Maureen Lerma NP, [facility] [Primary Care Provider] - Disposition Disposition (needs filled in before D/C Order can be placed): Home, Self Care Charges/Coding Visit Charges Inpatient E&M: 16921 Disch Hosp
--- NOTE | 2022-04-21 14:05 | CASEMGMT ---
Pt up ad jyotsna in room and states no concerns with going home at discharge. SStjordan CRESPO CM
--- NOTE | 2022-04-21 14:18 | PHA.DC.MC ---
Pharmacy Service has performed discharge medication reconciliation and counseling for this patient. 1. CEFDINIR 300MG PO BID X 7 DAYS 2. TRAMADOL 50MG PO Q6H PRN PAIN The patient's discharge medication list was reviewed for discrepancies and discrepancies were resolved. Home Medications Lactobacillus acidophilus 10 billion cell capsule 1 cap PO DAILY immune health 04/20/19 multivitamin 1 tab PO DAILY supplement 04/17/22 cefdinir 300 mg capsule 300 mg PO BID #14 caps 04/21/22 tramadol 50 mg tablet (Ultram) 50 mg PO Q6H PRN pain #30 tabs 04/21/22 The patient was counseled on the following discharge medications and changes in medications for homegoing were reviewed. The Reason for Use, instructions for use, and potential side effects were reviewed for all new medications. The patient's questions regarding all of their medications were answered. The patient was able to verbally demonstrate an understanding of their discharge medications. Patient counseled by student services vice presidentAndrea.
[2022-04-21 14:28] VITALS: BP 119/70; PULSE 91; RESP 16; TEMP 36.8; O2SAT 100
--- NOTE | 2022-04-21 15:34 | PCM.PN.ID ---
Physical Exam Narrative Feeling better, no fever, leg less red and sore Const alert and no apparent distress Resp normal air movement and clear to auscultation bilaterally Cardio regular rate and regular rhythm GI soft to palpation and non-tender Extremity General Extremity: edema Skin Skin Narrative: Fading LLE redness ID ID: Route of nutrition/ use of supplements: [] Nutritional Intake: [] IV Site: [] Hill Catheter: [] Assessment & Plan Assessment/Plan (1) Cellulitis of left leg: PLAN: wbc and fever much better. No purulence. Redness cont to improve. No clear inciting event. Bcx neg. OK for home with po omnicef for one more week. Will follow as needed, d/w Dr. Payan
== END 2022-04-21 14:43 | disposition home or self-care (01) | DRG 603 ==
LOC: ED 09:44 → PCU 12:27
PROVIDERS: Physician Assistant; Emergency Provider Emergency Medicine; PCP Nurse Practitioner; Visit Provider Internal Medicine
DX: L03.116 Cellulitis of left lower limb (principal); N17.9 Acute kidney failure, unspecified; D69.6 Thrombocytopenia, unspecified; M79.605 Pain in left leg; D64.9 Anemia, unspecified; E87.6 Hypokalemia; D72.829 Elevated white blood cell count, unspecified; F17.210 Nicotine dependence, cigarettes, uncomplicated; R73.9 Hyperglycemia, unspecified; Z20.822 Contact with and (suspected) exposure to COVID-19; Z86.73 Personal history of transient ischemic attack (TIA), and cerebral infarction without residual deficits
CPT/HCPCS: 36415; 71045; 80048; 80053; 80202; 81001; 82784; 83036; 83605; 84300; 85025; 85610; 85730; 87040; 87086; 87811; 99285; 99406; J7030; J7040; J7050; A4216; J0295; J2405